=== PATIENT | female | born 1930 | race Caucasian/White ===

== ENCOUNTER → 2016-05-15 | Outpatient (CLI) | payer MEDICARE, OTHER ==
[~2016-05-15] MED LIST: ALPR0.5T PO; ALPR0.5T7 PO; DABI75CA3 PO; DOCU-94 PO; FURO20TA3; LOSA50TA6 PO; MAGN250T22 PO; METO25TA3 PO; NOR10T PO; POTA12PO2 PO; RANO500T2 PO
[2016-05-15 12:25] LABS: Basophils # (auto) 0 uL; Basophils % (auto) 0.4 % (0.0-2.0); Eosinophils # (auto) 0.1 uL; Eosinophils % (auto) 1.2 % (0.0-7.0); Hematocrit 36.8 % (36.0-46.0); Hemoglobin 12.1 g/dL (12.2-16.2); Lymphocytes # (auto) 1.3 uL; Lymphocytes % (auto) 17.5 % (10.0-50.0); Mean Corpuscular Hemoglobin 32.6 pg (28.0-32.0); Mean Corpuscular Hgb Conc. 32.7 g/dL (32.0-36.0); Mean Corpuscular Volume 99.8 fL (80.0-100.0); Monocytes # (auto) 0.6 uL; Monocytes % (auto) 7.6 % (0.0-12.0); Neutrophils # (auto) 5.4 uL; Neutrophils % (auto) 73.3 % (37.0-80.0); Platelet Count (auto) 336 10^3/uL (140-450); Red Cell Distribution Width 15.6 % (11.6-16.0); White Blood Cell 7.3 10^3/uL (4.4-10.8)
[2016-05-15 12:56] LABS: BUN/Creatinine Ratio 27.7; Calcium 9.3 mg/dL (8.5-10.1)
== END | disposition home or self-care (01) ==
LOC: Rad HDHVI 08:00
PROVIDERS: ATTEND Internal Medicine Cardiovascular Disease
DX: I10 Essential (primary) hypertension (principal); D64.9 Anemia, unspecified
CPT/HCPCS: 36415; 80048; 85025; 85049; 93306

== ENCOUNTER → 2016-08-03 | Outpatient (CLI) | payer MEDICARE, OTHER ==
[~2016-08-03] MED LIST changes: +FUROSEMIDE 100 MG/10ML VIAL IV ONE; +FUROSEMIDE 40 MG/4 ML VIAL ONE; +POTASSIUM CHL 10 Meq TABLET PO ONE
[2016-08-03 11:15] VITALS: BP 133/83
[2016-08-03 14:15] VITALS: BP 119/58
== END | disposition home or self-care (01) ==
LOC: CHF HDHVI 11:03
PROVIDERS: ATTEND Internal Medicine Cardiovascular Disease
DX: I50.9 Heart failure, unspecified (principal); R60.0 Localized edema
CPT/HCPCS: 96374; G0463; J1940

== ENCOUNTER → 2016-08-13 | Outpatient (CLI) | payer MEDICARE, OTHER ==
[~2016-08-13] MED LIST changes: +POTASSIUM CHL 20 Meq TABLET PO ONE
[2016-08-13 13:00] VITALS: BP 130/60
[2016-08-13 16:25] LABS: Potassium 3.7 mmol/L (3.5-5.1)
== END | disposition home or self-care (01) ==
LOC: CHF HDHVI 11:37
PROVIDERS: ATTEND Internal Medicine Cardiovascular Disease
DX: I10 Essential (primary) hypertension (principal); R94.4 Abnormal results of kidney function studies
CPT/HCPCS: 36415; 82565; 84132; 84520; 96374; G0463

== ENCOUNTER → 2016-08-16 | Outpatient (CLI) | payer MEDICARE, OTHER ==
[~2016-08-16] MED LIST changes: -FURO20TA3; +FURO20TA3 PO; -FUROSEMIDE 100 MG/10ML VIAL IV ONE; -FUROSEMIDE 40 MG/4 ML VIAL ONE; -POTASSIUM CHL 10 Meq TABLET PO ONE; -POTASSIUM CHL 20 Meq TABLET PO ONE; +cefTRIAXone 1GM/50ML D5W 50 ML IV ONE
[2016-08-16 12:39] LABS: Basophils # (auto) 0 uL; Basophils % (auto) 0.1 % (0.0-2.0); DEFINITIVE VIEW TRANSMISSION; Eosinophils # (auto) 0 uL; Eosinophils % (auto) 0.1 % (0.0-7.0); Lymphocytes # (auto) 0.9 uL; Lymphocytes % (auto) 6.8 % (10.0-50.0); Mean Corpuscular Hemoglobin 34.2 pg (28.0-32.0); Mean Corpuscular Hgb Conc. 33.3 g/dL (32.0-36.0); Mean Corpuscular Volume 102.7 fL (80.0-100.0); Mean Platelet Volume 7.8 fL (7.4-10.4); Monocytes # (auto) 1.2 uL; Neutrophils # (auto) 11.1 uL; Platelet Count (auto) 468 10^3/uL (140-450); Red Cell Distribution Width 16.2 % (11.6-16.0); SUSPECT VIEW TRANSMISSION; White Blood Cell 13.3 10^3/uL (4.4-10.8)
[2016-08-16 15:35] VITALS: BP 106/47
== END | disposition home or self-care (01) ==
LOC: CHF HDHVI 11:15
PROVIDERS: ATTEND Internal Medicine Cardiovascular Disease
DX: I10 Essential (primary) hypertension (principal); R94.4 Abnormal results of kidney function studies; D64.9 Anemia, unspecified
CPT/HCPCS: 36415; 82565; 84132; 84520; 85025; 96365; G0463; J0696

== ENCOUNTER → 2016-11-02 | Outpatient (CLI) | payer MEDICARE, OTHER ==
[~2016-11-02] MED LIST changes: -ALPR0.5T7 PO; -cefTRIAXone 1GM/50ML D5W 50 ML IV ONE
[2016-11-02 13:07] LABS: Basophils # (auto) 0 uL; Basophils % (auto) 0.4 % (0.0-2.0); CONDITION Y; Eosinophils # (auto) 0.1 uL; Eosinophils % (auto) 0.9 % (0.0-7.0); Hemoglobin 11.7 g/dL (12.2-16.2); Lymphocytes # (auto) 1.7 uL; Lymphocytes % (auto) 20.9 % (10.0-50.0); Mean Corpuscular Hemoglobin 33.3 pg (28.0-32.0); Mean Corpuscular Hgb Conc. 33.4 g/dL (32.0-36.0); Mean Corpuscular Volume 99.9 fL (80.0-100.0); Mean Platelet Volume 8.6 fL (7.4-10.4); Monocytes # (auto) 0.8 uL; Monocytes % (auto) 10.1 % (0.0-12.0); Neutrophils # (auto) 5.5 uL; Neutrophils % (auto) 67.7 % (37.0-80.0); Platelet Count (auto) 317 10^3/uL (140-450); Red Cell Distribution Width 14.4 % (11.6-16.0); White Blood Cell 8.1 10^3/uL (4.4-10.8)
[2016-11-02 13:35] LABS: BUN/Creatinine Ratio 20.8; Calcium 9.3 mg/dL (8.5-10.1); Potassium 3.6 mmol/L (3.5-5.1)
== END | disposition home or self-care (01) ==
LOC: LAB 10:23
PROVIDERS: ATTEND Internal Medicine Cardiovascular Disease
DX: D64.9 Anemia, unspecified (principal); I10 Essential (primary) hypertension; N39.0 Urinary tract infection, site not specified
CPT/HCPCS: 36415; 80048; 85025; 87086

== ENCOUNTER → 2018-03-19 | Outpatient (CLI) | payer MEDICARE, OTHER ==
[~2018-03-19] MED LIST changes: +LOSA-46 PO; -LOSA50TA6 PO; -METO25TA3 PO; +METO25TA4 PO
== END | disposition home or self-care (01) ==
LOC: Rad HDHVI 07:58
PROVIDERS: ATTEND Internal Medicine Cardiovascular Disease
DX: I08.8 Other rheumatic multiple valve diseases (principal); I48.0 Paroxysmal atrial fibrillation
CPT/HCPCS: 93306

== ENCOUNTER → 2018-03-27 | Outpatient (CLI) | payer MEDICARE, OTHER ==
[~2018-03-27] VITALS: Ht 162.6 cm; Wt 77.1 kg
[~2018-03-27] MED LIST changes: +ADENOSINE 65 MG in GIVE UN-DILUTED 0 ML IV ONE; +ADENOSINE 90 MG/30 ML INJ IV ONE
== END | disposition home or self-care (01) ==
LOC: Rad HDHVI 08:07
PROVIDERS: ATTEND Internal Medicine Cardiovascular Disease
DX: I48.0 Paroxysmal atrial fibrillation (principal)
CPT/HCPCS: 78452; 93005; 96374; 96375; A9500; J0153

== ENCOUNTER → 2018-04-23 | Outpatient (CLI) | payer MEDICARE, OTHER ==
[~2018-04-23] MED LIST changes: -ADENOSINE 65 MG in GIVE UN-DILUTED 0 ML IV ONE; -ADENOSINE 90 MG/30 ML INJ IV ONE; +APIX2.5T OR; +FLUT100M IN
[2018-04-23 09:19] VITALS: BP 164/82
--- NOTE | 2018-04-23 09:40 | NUR ---
PRE-OP FOR LIEN FOR 04/24/18. EKG REVIEWED BY DR KIRKLAND. Pre-Op Discharge Summary: See e-MAR for any medications given for this visit. Pre-op orders received and carried out per MD of EKG, LABS and chest xrays. Patient given a copy of EKG with instructions to go to [facility] out patient for further follow up care.
[2018-04-23 11:39] VITALS: BP 164/82
[2018-04-23 12:30] LABS: Basophils # (auto) 0 uL; Eosinophils # (auto) 0.1 uL; Eosinophils % (auto) 0.9 % (0.0-7.0); Hemoglobin 12.2 g/dL (12.2-16.2); Lymphocytes # (auto) 0.9 uL; Monocytes # (auto) 0.6 uL; Neutrophils # (auto) 4.3 uL; White Blood Cell 5.9 10^3/uL (4.4-10.8)
[2018-04-23 12:33] LABS: Basophils % (auto) 0.8 % (0.0-2.0); Hematocrit 36.5 % (36.0-46.0); Lymphocytes % (auto) 15.3 % (10.0-50.0); Mean Corpuscular Hemoglobin 35.3 pg (28.0-32.0); Mean Corpuscular Hgb Conc. 33.4 g/dL (32.0-36.0); Mean Corpuscular Volume 105.7 fL (80.0-100.0); Monocytes % (auto) 10.7 % (0.0-12.0); Neutrophils % (auto) 72.3 % (37.0-80.0); Nucleated Red Blood Cells % 0.2 %; Platelet Count (auto) 229 10^3/uL (140-450); Red Blood Cells 3.46 10^6/uL (4.0-5.20); Red Cell Distribution Width 14.3 % (11.8-14.3)
[2018-04-23 13:04] LABS: INR 0.95 (0.9-1.15); Partial Thromboplastin Time 26.4 sec (23.78-33.04); Prothrombin Time 10.2 sec (9.27-12.13)
[2018-04-23 13:15] LABS: BUN/Creatinine Ratio 33.7; Calcium 8.5 mg/dL (8.5-10.1); Potassium 4.1 mmol/L (3.5-5.1)
== END | disposition home or self-care (01) ==
LOC: Rad HDHVI 09:00
PROVIDERS: ATTEND Internal Medicine Cardiovascular Disease
DX: Z01.812 Encounter for preprocedural laboratory examination (principal); I34.0 Nonrheumatic mitral (valve) insufficiency; I37.1 Nonrheumatic pulmonary valve insufficiency; I48.91 Unspecified atrial fibrillation; I11.9 Hypertensive heart disease without heart failure; I70.0 Atherosclerosis of aorta; M40.294 Other kyphosis, thoracic region; D64.9 Anemia, unspecified; R79.1 Abnormal coagulation profile; R94.31 Abnormal electrocardiogram [ECG] [EKG]
CPT/HCPCS: 36415; 71046; 80048; 85025; 85610; 85730; 93005; G0463

== ENCOUNTER 2018-04-24 08:21 | Day surgery (SDC) | payer MEDICARE, OTHER ==
[~2018-04-24] VITALS: Ht 30.5 cm; Wt 0.5 kg
[~2018-04-24 08:21] MED LIST changes: -DABI75CA3 PO
[2018-04-24] MEDS ORDERED: MIDAZOLAM HCL 1MG/1ML-2 ML VIAL IV ONE (09:00)
[2018-04-24] MEDS ORDERED: FLUMAZENIL 0.1 MG/ML INJ 10ML MDV IV ONE (09:00)
== END 2018-04-24 12:50 | disposition home or self-care (01) ==
LOC: CATH 08:21
PROVIDERS: ATTEND Internal Medicine Cardiovascular Disease
DX: I48.91 Unspecified atrial fibrillation (principal); I07.1 Rheumatic tricuspid insufficiency; I35.0 Nonrheumatic aortic (valve) stenosis; I27.20 Pulmonary hypertension, unspecified; J44.9 Chronic obstructive pulmonary disease, unspecified; F17.210 Nicotine dependence, cigarettes, uncomplicated; I25.2 Old myocardial infarction; Z96.651 Presence of right artificial knee joint; Z80.9 Family history of malignant neoplasm, unspecified; Z98.890 Other specified postprocedural states; Z90.710 Acquired absence of both cervix and uterus
CPT/HCPCS: 93312; J2250; J7030; 99152

== ENCOUNTER → 2018-05-26 | Outpatient (CLI) | payer MEDICARE, OTHER ==
[~2018-05-26] MED LIST changes: +CYANOCOBALAMIN (B-12) 1000 MCG/1 ML VIAL IM ONE; +CYANOCOBALAMIN (B-12) 1000 MCG/1 ML VIAL ONE; +FUROSEMIDE 100 MG/10ML VIAL IV ONE; +FUROSEMIDE 40 MG/4 ML VIAL ONE; +POTASSIUM CHL 10 Meq TABLET PO ONE; +POTASSIUM CHL 20 Meq TABLET PO ONE
[2018-05-26 10:30] VITALS: BP 165/83
--- NOTE | 2018-05-26 10:30 | NUR ---
CHF PT TO CHF CLINIC FOR MD KIRKLAND ORDERED FULL LABS, WD CARE TO R VIVEK BLISTER, LASIX 80MG IVP, POTASSIUM CHLORIDE 40 MEQ PO AND VIT B 12 1000MCG IM INJECTION FOR MALAISE AND FATIGUE.
[2018-05-26 11:20] VITALS: BP 147/78
--- NOTE | 2018-05-26 11:20 | NUR ---
[facility] Wound Care Wound care provided per MD order. Patient tolerated well and verbalized dressing care instructions. Follow up in clinic as directed. See e-MAR for medications given during this visit. Discharge Instructions See e-MAR for any mediations given with this visit. Patient education given on disease process. Patient verbalized understanding. VIT B 12 [id number] Previous labs reviewed. Patient discharged in stable condition with after care instructions and follow up appointment. Addendum: 05/26/18 at 1548 by Queenie Urbina RN DC CLARIFICATION VIT B 12 1000MCG IM R DELTOID . PT TOLERATED WELL. PT TO FOLLOW UP WITH DR. KIRKLAND 06/21/18 AT 1000
[2018-05-26 16:07] LABS: Basophils # (auto) 0 uL; Eosinophils # (auto) 0 uL; Eosinophils % (auto) 0.9 % (0.0-7.0); Neutrophils # (auto) 4.3 uL; White Blood Cell 5.5 10^3/uL (4.4-10.8)
[2018-05-26 16:09] LABS: Basophils % (auto) 0.4 % (0.0-2.0); Lymphocytes # (auto) 0.6 uL; Lymphocytes % (auto) 11.6 % (10.0-50.0); Mean Corpuscular Hemoglobin 36.1 pg (28.0-32.0); Mean Corpuscular Hgb Conc. 34.2 g/dL (32.0-36.0); Mean Corpuscular Volume 105.4 fL (80.0-100.0); Monocytes # (auto) 0.6 uL; Monocytes % (auto) 10.1 % (0.0-12.0); Nucleated Red Blood Cells % 0.6 %; Platelet Count (auto) 194 10^3/uL (140-450); Red Blood Cells 3.03 10^6/uL (4.0-5.20); Red Cell Distribution Width 14.4 % (11.8-14.3)
[2018-05-26 16:13] LABS: Potassium 3.9 mmol/L (3.5-5.1)
== END | disposition home or self-care (01) ==
LOC: CHF HDHVI 10:32
PROVIDERS: ATTEND Internal Medicine Cardiovascular Disease
DX: I11.0 Hypertensive heart disease with heart failure (principal); I50.42 Chronic combined systolic (congestive) and diastolic (congestive) heart failure; I25.10 Atherosclerotic heart disease of native coronary artery without angina pectoris; R94.4 Abnormal results of kidney function studies; D64.9 Anemia, unspecified; E55.9 Vitamin D deficiency, unspecified; R23.8 Other skin changes; I48.0 Paroxysmal atrial fibrillation; I27.21 Secondary pulmonary arterial hypertension; J44.9 Chronic obstructive pulmonary disease, unspecified; I25.2 Old myocardial infarction; M19.90 Unspecified osteoarthritis, unspecified site; E78.5 Hyperlipidemia, unspecified; Z90.710 Acquired absence of both cervix and uterus; Z86.73 Personal history of transient ischemic attack (TIA), and cerebral infarction without residual deficits; Z96.651 Presence of right artificial knee joint; Z87.440 Personal history of urinary (tract) infections
CPT/HCPCS: 36415; 82306; 82565; 83880; 84132; 84520; 85025; 96372; 96374; G0463; J1940; J3420

== ENCOUNTER → 2018-06-25 | Outpatient (CLI) | payer MEDICARE, OTHER ==
[~2018-06-25] MED LIST changes: -CYANOCOBALAMIN (B-12) 1000 MCG/1 ML VIAL IM ONE; -CYANOCOBALAMIN (B-12) 1000 MCG/1 ML VIAL ONE; -FUROSEMIDE 100 MG/10ML VIAL IV ONE; +FUROSEMIDE 20 MG/2 ML VIAL ONE; +FUROSEMIDE 40 MG/4 ML VIAL IV ONE; -FUROSEMIDE 40 MG/4 ML VIAL ONE; +FUROSEMIDE INJECTION 10 ML ONE
[2018-06-25 08:00] VITALS: BP 143/65
[2018-06-25 08:30] VITALS: BP 138/72
--- NOTE | 2018-06-25 08:30 | NUR ---
IN TO CLINIC WITH WALKER IN USE, GAIT STEADY. NO DISTRESS OR DISCOMFORT. PT PRESENTS WITH ORDERS FROM DR KIRKLAND FOR LASIX 120 MG IVP AND POTASSIUM 20 MEQ PO AND ROUTINE WEEKLY TREATMENT WITH SAME ORDERS. PT REPORTS THAT SHE HAD A DOSE LAST WEEK AND THAT SHE FELT BETTER AFTERWARDS. 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 HECTOR BOOTS CURRENTLY IN PLACE AND PATIENT REPORTS THAT HOME HEALTH IS APPLYING THEM 3 TIMES WEEKLY FOR FLUID OVERLOAD MANAGEMENT. VS WNL. MEDICATED PER ORDER. REPEAT VITALS WNL. Discharge Instructions See e-MAR for any mediations given with this visit. Patient education given on disease process. Patient verbalized understanding. Previous labs reviewed. Patient discharged in stable condition with after care instructions. MEDICATION ADMINISTRATION LASIX 120 MG IVP X 1 AT 0820 POTASSIUM 20 MEQ PO AT 0820
== END | disposition home or self-care (01) ==
LOC: CHF HDHVI 08:03
PROVIDERS: ATTEND Internal Medicine Cardiovascular Disease
DX: I11.0 Hypertensive heart disease with heart failure (principal); I50.42 Chronic combined systolic (congestive) and diastolic (congestive) heart failure; R60.9 Edema, unspecified; I34.1 Nonrheumatic mitral (valve) prolapse; J44.9 Chronic obstructive pulmonary disease, unspecified; I25.2 Old myocardial infarction; I25.10 Atherosclerotic heart disease of native coronary artery without angina pectoris; I48.0 Paroxysmal atrial fibrillation; I27.21 Secondary pulmonary arterial hypertension; E78.5 Hyperlipidemia, unspecified; M19.90 Unspecified osteoarthritis, unspecified site; Z90.710 Acquired absence of both cervix and uterus; Z87.440 Personal history of urinary (tract) infections; Z96.651 Presence of right artificial knee joint; Z86.73 Personal history of transient ischemic attack (TIA), and cerebral infarction without residual deficits
CPT/HCPCS: 96374; G0463; J1940

== ENCOUNTER → 2018-07-17 | Outpatient (CLI) | payer MEDICARE, OTHER ==
[2018-07-17 10:11] VITALS: BP 138/92
[2018-07-17 10:50] VITALS: BP 149/89
[2018-07-17 16:01] LABS: Potassium 4.3 mmol/L (3.5-5.1)
== END | disposition home or self-care (01) ==
LOC: CHF HDHVI 10:15
PROVIDERS: ATTEND Internal Medicine Cardiovascular Disease
DX: I11.0 Hypertensive heart disease with heart failure (principal); I50.9 Heart failure, unspecified; R94.4 Abnormal results of kidney function studies; E87.6 Hypokalemia; I25.10 Atherosclerotic heart disease of native coronary artery without angina pectoris; I50.42 Chronic combined systolic (congestive) and diastolic (congestive) heart failure; J44.9 Chronic obstructive pulmonary disease, unspecified; E78.5 Hyperlipidemia, unspecified; I25.2 Old myocardial infarction; M19.90 Unspecified osteoarthritis, unspecified site; Z90.710 Acquired absence of both cervix and uterus; Z86.73 Personal history of transient ischemic attack (TIA), and cerebral infarction without residual deficits
CPT/HCPCS: 36415; 82565; 84132; 84520; 96374; G0463; J1940

== ENCOUNTER → 2018-07-30 | Outpatient (CLI) | payer MEDICARE, OTHER ==
[~2018-07-30] MED LIST changes: +FUROSEMIDE 100 MG/10ML VIAL IV ONE; -FUROSEMIDE 40 MG/4 ML VIAL IV ONE; -POTASSIUM CHL 20 Meq TABLET PO ONE
[2018-07-30 11:04] VITALS: BP 146/74
[2018-07-30 11:30] VITALS: BP 156/78
--- NOTE | 2018-07-30 11:30 | NUR ---
CHF CLINIC Discharge Instructions See e-MAR for any mediations given with this visit. Patient education given on disease process. Patient verbalized understanding. Previous labs reviewed. Patient discharged in stable condition with after care instructions and follow up appointment. NOTE LASIX IVP ADMIN BY NICOLE ROCHA POTASSIUM ADMIN BY SARA ROCHA. LABS DRAWN BY SARA ROCHA
[2018-07-30 16:46] LABS: Basophils # (auto) 0 uL; Eosinophils # (auto) 0 uL; Lymphocytes # (auto) 0.6 uL; Monocytes # (auto) 0.6 uL; Neutrophils # (auto) 4.9 uL; Platelet Count (auto) 189 10^3/uL (140-450)
[2018-07-30 16:49] LABS: Basophils % (auto) 0.6 % (0.0-2.0); Eosinophils % (auto) 0.6 % (0.0-7.0); Hematocrit 34.6 % (36.0-46.0); Hemoglobin 11.5 g/dL (12.2-16.2); Lymphocytes % (auto) 9.3 % (10.0-50.0); Mean Corpuscular Hemoglobin 35.3 pg (28.0-32.0); Mean Corpuscular Hgb Conc. 33.3 g/dL (32.0-36.0); Monocytes % (auto) 10.1 % (0.0-12.0); Neutrophils % (auto) 79.4 % (37.0-80.0); Nucleated Red Blood Cells % 0.2 %; Red Blood Cells 3.27 10^6/uL (4.0-5.20); Red Cell Distribution Width 14.4 % (11.8-14.3); White Blood Cell 6.2 10^3/uL (4.4-10.8)
[2018-07-30 16:53] LABS: Potassium 3.6 mmol/L (3.5-5.1)
[2018-07-30 17:04] LABS: Albumin 3.6 g/dL (3.4-5.0); Bilirubin, Total 1.3 mg/dL (0.2-1.0); Calcium 8.8 mg/dL (8.5-10.1); Magnesium 2.6 mg/dL (1.6-2.6); Total Protein 6.6 g/dL (6.4-8.2)
== END | disposition home or self-care (01) ==
LOC: CHF HDHVI 11:14
PROVIDERS: ATTEND Internal Medicine Cardiovascular Disease
DX: I11.0 Hypertensive heart disease with heart failure (principal); I50.23 Acute on chronic systolic (congestive) heart failure; I50.32 Chronic diastolic (congestive) heart failure; D64.9 Anemia, unspecified; E83.40 Disorders of magnesium metabolism, unspecified; I25.10 Atherosclerotic heart disease of native coronary artery without angina pectoris; I48.0 Paroxysmal atrial fibrillation; I25.2 Old myocardial infarction; J44.9 Chronic obstructive pulmonary disease, unspecified; E78.5 Hyperlipidemia, unspecified; M19.90 Unspecified osteoarthritis, unspecified site; I27.21 Secondary pulmonary arterial hypertension; Z90.710 Acquired absence of both cervix and uterus; Z87.440 Personal history of urinary (tract) infections; Z96.651 Presence of right artificial knee joint; Z86.73 Personal history of transient ischemic attack (TIA), and cerebral infarction without residual deficits
CPT/HCPCS: 36415; 80053; 83735; 83880; 85025; 96374; G0463; J1940

== ENCOUNTER → 2018-08-14 | Outpatient (CLI) | payer MEDICARE, OTHER ==
[~2018-08-14] MED LIST changes: +POTASSIUM CHL 20 Meq TABLET PO ONE
--- NOTE | 2018-08-14 10:00 | NUR ---
CHF PT ARRIVED AT CHF CLINIC O DISTRESS VITAL SIGNS OBTAINED. PT DID STATE SHE FEELS FULL OF FLUID, UPDATED ORDERED RECIEVED AND NOTED.
--- NOTE | 2018-08-14 10:35 | NUR ---
IV insertion IV access obtained, via clean sterile technique by inserting 24 gauge catheter at after attempt(s). IV secured properly. No trauma to site. Patient tolerated procedure well.
[2018-08-14 10:40] VITALS: BP 132/66
--- NOTE | 2018-08-14 11:05 | NUR ---
IV removal IV DC'd with sterile technique, catheter fully intact. Pressure dressing applied to site. Patient tolerated procedure well. Discharged with aftercare instructions per MD. NOTE:
[2018-08-14 11:10] VITALS: BP 130/69
--- NOTE | 2018-08-14 11:10 | NUR ---
Discharge Instructions See e-MAR for any mediations given with this visit. Patient education given on disease process. Patient verbalized understanding. Previous labs reviewed. Patient discharged in stable condition with after care instructions and follow up appointment. MEDICATIONS 1040 LASIX 120MG 1VP X 1 1045 POTASSIUM 40 MEQ PO X 1
== END | disposition home or self-care (01) ==
LOC: CHF HDHVI 10:07
PROVIDERS: ATTEND Internal Medicine Cardiovascular Disease
DX: I11.0 Hypertensive heart disease with heart failure (principal); I50.9 Heart failure, unspecified; I25.10 Atherosclerotic heart disease of native coronary artery without angina pectoris; J44.9 Chronic obstructive pulmonary disease, unspecified; E78.5 Hyperlipidemia, unspecified; I48.0 Paroxysmal atrial fibrillation; M19.90 Unspecified osteoarthritis, unspecified site; I50.42 Chronic combined systolic (congestive) and diastolic (congestive) heart failure; I25.2 Old myocardial infarction; Z86.73 Personal history of transient ischemic attack (TIA), and cerebral infarction without residual deficits
CPT/HCPCS: 96374; G0463; J1940

== ENCOUNTER → 2018-08-26 | Outpatient (CLI) | payer MEDICARE, OTHER ==
[2018-08-26 10:00] VITALS: BP 150/73
[2018-08-26 10:30] VITALS: BP 147/77
--- NOTE | 2018-08-26 10:30 | NUR ---
IN TO CLINIC FOR SCHEDULED INJECTION WITH SON IN ATTENDANCE. AFFECT CHEERFUL AND COOPERATIVE. VS WNL. BILATERAL HECTOR BOOTS INTACT WITH PT ONLY ABLE TO WEAR SLIPPERS DUE TO PERIPHERAL EDEMA. LABS DRAWN FROM BUTTERFLY NEEDLE AND THEN MEDICATED PER STANDING ORDER. TOLERATED WELL. DISCHARGED TO CARE OF FAMILY IN NO DISTRESS OR DISCOMFORT. MEDICATION ADMINISTRATION LASIX 120 MG IVP AT 1010 POTASSIUM 40 MEQ PO AT 1020
== END | disposition home or self-care (01) ==
LOC: CHF HDHVI 10:11
PROVIDERS: ATTEND Internal Medicine Cardiovascular Disease
DX: I11.0 Hypertensive heart disease with heart failure (principal); I50.42 Chronic combined systolic (congestive) and diastolic (congestive) heart failure; R94.4 Abnormal results of kidney function studies; E87.6 Hypokalemia; I27.21 Secondary pulmonary arterial hypertension; I25.10 Atherosclerotic heart disease of native coronary artery without angina pectoris; J44.9 Chronic obstructive pulmonary disease, unspecified; E78.5 Hyperlipidemia, unspecified; I25.2 Old myocardial infarction; I48.0 Paroxysmal atrial fibrillation; M19.90 Unspecified osteoarthritis, unspecified site; Z86.73 Personal history of transient ischemic attack (TIA), and cerebral infarction without residual deficits; Z90.710 Acquired absence of both cervix and uterus
CPT/HCPCS: 36415; 82565; 84132; 84520; 96374; G0463; J1940

== ENCOUNTER → 2018-09-18 | Outpatient (CLI) | payer MEDICARE, OTHER ==
[~2018-09-18] MED LIST changes: -FUROSEMIDE 100 MG/10ML VIAL IV ONE; +FUROSEMIDE 40 MG/4 ML VIAL IV ONE
[2018-09-18 11:20] VITALS: BP 138/75
[2018-09-18 12:05] VITALS: BP 129/90
--- NOTE | 2018-09-18 12:05 | NUR ---
CHF IN TO CLINIC FOR CHF. LYMPHADEMA OF BILATERAL LOWER EXTREMITIES, LEFT GREATER THAN RIGHT. HECTOR BOOTS INTACT BILATERALLY PT REPORTS LEAKING LEG ON LEFT LEG AND APPLIED A GAUZE E PAD. CLINIC PROVIDER CONSULTED AND ORDERS RECIEVED. VS WNL. FAMILY IN ATTENDANCE. MEDICATED PER ORDER. TOLERATED WELL. Discharge Instructions See e-MAR for any mediations given with this visit. Patient education given on disease process. Patient verbalized understanding. Previous labs reviewed. Patient discharged in stable condition with after care instructions and follow up appointment FOR 1 WEEK. MEDICATION ADMINISTRATION LASIX 120 MG IVP AT 1200 POTASSIUM 40 MEQ PO AT 1150
== END | disposition home or self-care (01) ==
LOC: CHF HDHVI 11:18
PROVIDERS: ATTEND Internal Medicine Cardiovascular Disease
DX: I89.0 Lymphedema, not elsewhere classified (principal); I11.0 Hypertensive heart disease with heart failure; I50.42 Chronic combined systolic (congestive) and diastolic (congestive) heart failure; I25.10 Atherosclerotic heart disease of native coronary artery without angina pectoris; I25.2 Old myocardial infarction; I48.0 Paroxysmal atrial fibrillation; J44.9 Chronic obstructive pulmonary disease, unspecified; E78.5 Hyperlipidemia, unspecified; M19.90 Unspecified osteoarthritis, unspecified site; Z90.710 Acquired absence of both cervix and uterus; Z86.73 Personal history of transient ischemic attack (TIA), and cerebral infarction without residual deficits
CPT/HCPCS: 96374; G0463; J1940

== ENCOUNTER → 2018-09-26 | Outpatient (CLI) | payer MEDICARE, OTHER ==
[~2018-09-26] MED LIST changes: +FUROSEMIDE 100 MG/10ML VIAL IV ONE; -FUROSEMIDE 40 MG/4 ML VIAL IV ONE; +KETOROLAC TROMETH 60MG/2ML VIAL IM ONE; +KETOROLAC TROMETH 60MG/2ML VIAL ONE; +TORS1TAB10 PO
[2018-09-26 10:30] VITALS: BP 138/71
[2018-09-26 10:53] VITALS: BP 154/67
--- NOTE | 2018-09-26 10:53 | NUR ---
IN TO CLINIC FOR SCHEDULED IV PUSH OF LASIX. BILATERAL HECTOR BOOTS ON. VS WNL. CLINIC PROVIDER CONSULTED AND ORDERS RECIEVED. MEDICATED PER ORDER. TOLERATED WELL. REPORTS PAIN 7/10 TO ALL JOINTS . Discharge Instructions See e-MAR for any mediations given with this visit. Patient education given on disease process. Patient verbalized understanding. Previous labs reviewed. Patient discharged in stable condition with after care instructions and follow up appointment FOR 10/02/18. MEDICATION ADMINISTRATION LASIX 120 MG IVP AT 1035 KDUR 40 MEQ PO AT 1030 TORADOL 30 MG IM RIGHT GLUT AT 1050
[2018-09-26 12:22] LABS: Basophils # (auto) 0 uL; Eosinophils # (auto) 0 uL; Eosinophils % (auto) 0.3 % (0.0-7.0); Lymphocytes # (auto) 0.7 uL; Mean Corpuscular Hgb Conc. 33.7 g/dL (32.0-36.0); Neutrophils # (auto) 7.6 uL
[2018-09-26 12:26] LABS: Basophils % (auto) 0.2 % (0.0-2.0); Hematocrit 34.6 % (36.0-46.0); Hemoglobin 11.7 g/dL (12.2-16.2); Lymphocytes % (auto) 7.4 % (10.0-50.0); Mean Corpuscular Hemoglobin 35.3 pg (28.0-32.0); Mean Corpuscular Volume 104.9 fL (80.0-100.0); Monocytes # (auto) 0.7 uL; Monocytes % (auto) 8.2 % (0.0-12.0); Neutrophils % (auto) 83.9 % (37.0-80.0); Platelet Count (auto) 200 10^3/uL (140-450)
[2018-09-26 12:45] LABS: Potassium 3.8 mmol/L (3.5-5.1)
[2018-09-26 12:50] LABS: BUN/Creatinine Ratio 64.5; Calcium 8.6 mg/dL (8.5-10.1); Magnesium 3.2 mg/dL (1.6-2.6)
== END | disposition home or self-care (01) ==
LOC: CHF HDHVI 10:12
PROVIDERS: ATTEND Internal Medicine Cardiovascular Disease
DX: I11.0 Hypertensive heart disease with heart failure (principal); I50.42 Chronic combined systolic (congestive) and diastolic (congestive) heart failure; D64.9 Anemia, unspecified; E83.40 Disorders of magnesium metabolism, unspecified; I27.21 Secondary pulmonary arterial hypertension; I25.2 Old myocardial infarction; I25.10 Atherosclerotic heart disease of native coronary artery without angina pectoris; I48.0 Paroxysmal atrial fibrillation; J44.9 Chronic obstructive pulmonary disease, unspecified; E78.5 Hyperlipidemia, unspecified; M19.90 Unspecified osteoarthritis, unspecified site; Z86.73 Personal history of transient ischemic attack (TIA), and cerebral infarction without residual deficits; Z90.710 Acquired absence of both cervix and uterus
CPT/HCPCS: 36415; 80048; 83735; 85025; 96372; 96374; G0463; J1885; J1940

== ENCOUNTER 2018-10-03 06:55 | Inpatient (IN) | payer MEDICARE, OTHER ==
[~2018-10-03] VITALS: Ht 165.1 cm; Wt 85.3 kg
[~2018-10-03 06:55] MED LIST changes: -FUROSEMIDE 100 MG/10ML VIAL IV ONE; -FUROSEMIDE 20 MG/2 ML VIAL ONE; -FUROSEMIDE INJECTION 10 ML ONE; -KETOROLAC TROMETH 60MG/2ML VIAL IM ONE; -KETOROLAC TROMETH 60MG/2ML VIAL ONE; -POTASSIUM CHL 10 Meq TABLET PO ONE; -POTASSIUM CHL 20 Meq TABLET PO ONE; -TORS1TAB10 PO
[2018-10-03] MEDS ORDERED: SODIUM CHLORIDE 0.9% 500 ML IVB ONE (07:25)
[2018-10-03 08:30] LABS: Basophils # (auto) 0 uL; Basophils % (auto) 0.1 % (0.0-2.0); Lymphocytes # (auto) 0.6 uL; Red Cell Distribution Width 14.2 % (11.8-14.3)
[2018-10-03 08:32] LABS: Urine Bacteria FEW /hpf (None Seen); Urine Blood Negative /uL (Negative); Urine Specific Gravity 1.014 (1.001-1.035); Urine WBC <1 /hpf (0 - 5)
[2018-10-03 08:33] LABS: Eosinophils # (auto) 0 uL; Eosinophils % (auto) 0.2 % (0.0-7.0); Hematocrit 37.8 % (36.0-46.0); Hemoglobin 12.6 g/dL (12.2-16.2); Lymphocytes % (auto) 4.4 % (10.0-50.0); Mean Corpuscular Hemoglobin 35.4 pg (28.0-32.0); Mean Corpuscular Hgb Conc. 33.4 g/dL (32.0-36.0); Mean Corpuscular Volume 105.9 fL (80.0-100.0); Monocytes # (auto) 1.2 uL; Monocytes % (auto) 8.3 % (0.0-12.0); Neutrophils # (auto) 12.6 uL; Platelet Count (auto) 207 10^3/uL (140-450); Red Blood Cells 3.57 10^6/uL (4.0-5.20); White Blood Cell 14.5 10^3/uL (4.4-10.8)
[2018-10-03 08:51] LABS: Albumin 3.3 g/dL (3.4-5.0); BUN/Creatinine Ratio 61.7; Calcium 8.9 mg/dL (8.5-10.1); Magnesium 3.2 mg/dL (1.6-2.6); Potassium 3.9 mmol/L (3.5-5.1)
[2018-10-03 08:52] LABS: INR 0.95 (0.9-1.15); Partial Thromboplastin Time 23.2 sec (23.64-32.05)
[2018-10-03 08:56] LABS: Bilirubin, Total 0.6 mg/dL (0.2-1.0); Total Protein 6.7 g/dL (6.4-8.2)
[2018-10-03] MEDS ORDERED: NITROGLYCERIN 0.4 MG SL TAB SL PRN (11:15)
[2018-10-03] MEDS ORDERED: MORPHINE SULF INJ 2 MG/ML SYRINGE 1ML IV PRN (11:15)
[2018-10-03] MEDS: SODIUM CHLORIDE 0.9% 1,000 ML IV SCH ×2 (11:39→21:15)
[2018-10-03 17:56] VITALS: BP 137/54
[2018-10-03 22:00] VITALS: BP 136/90
[2018-10-03] MEDS: RANOLAZINE ER 500 MG TAB PO SCH (22:01)
[2018-10-03] MEDS: APIXABAN 2.5 MG TAB PO SCH (22:02)
[2018-10-03] MEDS: LOSARTAN POTASSIUM 50 MG TAB PO SCH (22:02)
[2018-10-03] MEDS: METOPROLOL TARTRATE 25 MG TAB PO SCH (22:02)
[2018-10-03] MEDS: HYDROcodone-ACET 10/325MG TAB PO PRN (22:55)
[2018-10-04] MEDS: ALPRAZolam 0.5 MG TAB PO PRN ×2 (00:08→22:25)
[2018-10-04 05:00] VITALS: BP 119/70
[2018-10-04] MEDS: FUROSEMIDE 40 MG TAB PO SCH ×2 (06:31→18:08)
[2018-10-04] MEDS: HYDROcodone-ACET 10/325MG TAB PO PRN ×2 (07:29→18:14)
[2018-10-04 09:00] VITALS: BP 110/66
[2018-10-04] MEDS: METOPROLOL TARTRATE 25 MG TAB PO SCH ×3 (10:00→10:48)
[2018-10-04] MEDS: cefTRIAXone 1GM/50ML D5W 50 ML IV SCH (10:02)
[2018-10-04] MEDS: MAGNESIUM OXIDE 400 MG TAB PO SCH (10:03)
[2018-10-04] MEDS: APIXABAN 2.5 MG TAB PO SCH ×2 (10:03→22:25)
[2018-10-04] MEDS: POTASSIUM CHL 20 Meq TABLET PO SCH (10:03)
[2018-10-04] MEDS: RANOLAZINE ER 500 MG TAB PO SCH ×2 (10:03→22:25)
[2018-10-04] MEDS: LOSARTAN POTASSIUM 50 MG TAB PO SCH ×2 (10:07→22:26)
[2018-10-04] MEDS ORDERED: BISACODYL 5 MG EC TAB PO ONE (10:45)
[2018-10-04 12:16] VITALS: BP 107/56
[2018-10-04] MEDS: SODIUM CHLORIDE 0.9% 1,000 ML IV SCH ×2 (15:00→17:15)
[2018-10-04] MEDS ORDERED: TORS1TAB10 PO (16:51)
[2018-10-04 17:00] VITALS: BP 97/56
[2018-10-04 21:40] VITALS: BP 123/60
[2018-10-05] MEDS: HYDROcodone-ACET 10/325MG TAB PO PRN ×2 (04:47→17:19)
[2018-10-05] MEDS: SODIUM CHLORIDE 0.9% 1,000 ML IV SCH ×2 (04:48→17:18)
[2018-10-05 05:00] VITALS: BP 117/71
[2018-10-05] MEDS: FUROSEMIDE 40 MG TAB PO SCH ×2 (06:19→18:00)
[2018-10-05 09:00] VITALS: BP 125/74
[2018-10-05] MEDS: MAGNESIUM OXIDE 400 MG TAB PO SCH (10:00)
[2018-10-05] MEDS: cefTRIAXone 1GM/50ML D5W 50 ML IV SCH (10:31)
[2018-10-05] MEDS: POTASSIUM CHL 20 Meq TABLET PO SCH (10:31)
[2018-10-05] MEDS: LOSARTAN POTASSIUM 50 MG TAB PO SCH ×2 (10:34→22:11)
[2018-10-05] MEDS: APIXABAN 2.5 MG TAB PO SCH ×2 (10:34→22:07)
[2018-10-05] MEDS: RANOLAZINE ER 500 MG TAB PO SCH ×2 (10:36→22:07)
[2018-10-05] MEDS: METOPROLOL TARTRATE 25 MG TAB PO SCH (10:37)
[2018-10-05 13:18] VITALS: BP 124/64
[2018-10-05 14:28] LABS: Potassium 3.4 mmol/L (3.5-5.1)
[2018-10-05 14:30] LABS: BUN/Creatinine Ratio 38.7
[2018-10-05 14:33] LABS: Bilirubin, Total 0.8 mg/dL (0.2-1.0); Total Protein 6.1 g/dL (6.4-8.2)
[2018-10-05 14:56] LABS: Basophils # (auto) 0 uL; Basophils % (auto) 0.3 % (0.0-2.0); Eosinophils # (auto) 0.1 uL; White Blood Cell 11.7 10^3/uL (4.4-10.8)
[2018-10-05 15:24] LABS: Eosinophils % (auto) 0.6 % (0.0-7.0); Lymphocytes # (auto) 0.7 uL; Lymphocytes % (auto) 5.8 % (10.0-50.0); Monocytes # (auto) 0.8 uL; Monocytes % (auto) 7.2 % (0.0-12.0); Neutrophils # (auto) 10.1 uL; Neutrophils % (auto) 86.1 % (37.0-80.0); Red Blood Cells 3.26 10^6/uL (4.0-5.20)
[2018-10-05 15:25] LABS: Hematocrit 34.5 % (36.0-46.0); Hemoglobin 11.4 g/dL (12.2-16.2); Mean Corpuscular Hemoglobin 35.1 pg (28.0-32.0); Mean Corpuscular Hgb Conc. 33.1 g/dL (32.0-36.0); Mean Corpuscular Volume 106.1 fL (80.0-100.0); Platelet Count (auto) 190 10^3/uL (140-450)
[2018-10-05 17:00] VITALS: BP 132/85
[2018-10-05] MEDS: ALPRAZolam 0.5 MG TAB PO PRN (22:07)
[2018-10-06] VITALS (7 sets, daily range): BP systolic 89–126; BP diastolic 36–75
[2018-10-06] MEDS: HYDROcodone-ACET 10/325MG TAB PO PRN ×2 (03:10→15:16)
[2018-10-06] MEDS: SODIUM CHLORIDE 0.9% 1,000 ML IV SCH ×2 (03:12→09:15)
[2018-10-06] MEDS: FUROSEMIDE 40 MG TAB PO SCH ×2 (06:32→18:00)
[2018-10-06 07:37] LABS: Hemoglobin 11.1 g/dL (12.2-16.2); Red Cell Distribution Width 13.8 % (11.8-14.3)
[2018-10-06 07:41] LABS: Hematocrit 32.6 % (36.0-46.0); Mean Corpuscular Hemoglobin 36.1 pg (28.0-32.0); Mean Corpuscular Hgb Conc. 34.1 g/dL (32.0-36.0); Mean Corpuscular Volume 105.7 fL (80.0-100.0); Platelet Count (auto) 183 10^3/uL (140-450); Red Blood Cells 3.08 10^6/uL (4.0-5.20)
[2018-10-06 08:32] LABS: Band Neutrophils % (manual) 0; Basophils % (manual) 0 (0.0-2.0); Blast Cells 0; Metamyelocytes % 0; Myelocytes % 0; Promyelocytes % 0; Reactive Lymphocytes 0
[2018-10-06] MEDS: cefTRIAXone 1GM/50ML D5W 50 ML IV SCH (10:11)
[2018-10-06] MEDS: MAGNESIUM OXIDE 400 MG TAB PO SCH (10:12)
[2018-10-06] MEDS: METOPROLOL TARTRATE 25 MG TAB PO SCH (10:13)
[2018-10-06] MEDS: POTASSIUM CHL 20 Meq TABLET PO SCH (10:14)
[2018-10-06] MEDS: RANOLAZINE ER 500 MG TAB PO SCH ×2 (10:18→22:41)
[2018-10-06] MEDS: LOSARTAN POTASSIUM 50 MG TAB PO SCH ×2 (10:18→22:40)
[2018-10-06] MEDS: APIXABAN 2.5 MG TAB PO SCH ×2 (10:18→22:41)
[2018-10-06] MEDS: ALPRAZolam 0.5 MG TAB PO PRN (22:41)
[2018-10-06 22:51] LABS: Eosinophils % (manual) 3 (0-7); Lymphocytes % (manual) 7 (10.0-50.0); Monocytes % (manual) 5 (0-12)
[2018-10-07] VITALS (7 sets, daily range): BP systolic 128–143; BP diastolic 73–100
[2018-10-07] MEDS: HYDROcodone-ACET 10/325MG TAB PO PRN ×2 (04:00→15:30)
[2018-10-07] MEDS: cefTRIAXone 1GM/50ML D5W 50 ML IV SCH (11:29)
[2018-10-07] MEDS: RANOLAZINE ER 500 MG TAB PO SCH (11:30)
[2018-10-07] MEDS: POTASSIUM CHL 20 Meq TABLET PO SCH (11:30)
[2018-10-07] MEDS: APIXABAN 2.5 MG TAB PO SCH (11:30)
[2018-10-07] MEDS: MAGNESIUM OXIDE 400 MG TAB PO SCH (11:30)
[2018-10-07] MEDS: LOSARTAN POTASSIUM 50 MG TAB PO SCH (11:31)
[2018-10-07] MEDS: METOPROLOL TARTRATE 25 MG TAB PO SCH (11:31)
== END 2018-10-07 18:35 | disposition home health service (06) | DRG 871 ==
LOC: EDUNIT# 06:55 → ER 06:55 → EDBD 06:55 → TELE 06:56 → TELE-EAST 16:42
PROVIDERS: ADMIT Internal Medicine Cardiovascular Disease; ATTEND Internal Medicine Cardiovascular Disease
DX: A41.9 Sepsis, unspecified organism (principal); N17.0 Acute kidney failure with tubular necrosis; N39.0 Urinary tract infection, site not specified; I50.32 Chronic diastolic (congestive) heart failure; R55 Syncope and collapse; S09.90XA Unspecified injury of head, initial encounter; X58.XXXA Exposure to other specified factors, initial encounter; R73.9 Hyperglycemia, unspecified; E86.9 Volume depletion, unspecified; I11.0 Hypertensive heart disease with heart failure; Z79.01 Long term (current) use of anticoagulants; Z79.51 Long term (current) use of inhaled steroids; Z79.899 Other long term (current) drug therapy; Z86.73 Personal history of transient ischemic attack (TIA), and cerebral infarction without residual deficits; Z90.710 Acquired absence of both cervix and uterus; Z90.49 Acquired absence of other specified parts of digestive tract; Y93.89 Activity, other specified; Y92.89 Other specified places as the place of occurrence of the external cause; Y99.8 Other external cause status
CPT/HCPCS: 36415; 36600; 70450; 71045; 72125; 80053; 80320; 81001; 82805; 83735; 83880; 84484; 85007; 85025; 85027; 85610; 85730; 87040; 93005; 94761; 96360; 96361; 96372; 96374; 97116; 97163; 97530; G0378; G0463; J0696; J1885

== ENCOUNTER → 2018-11-11 | Outpatient (CLI) | payer MEDICARE, OTHER ==
[~2018-11-11] MED LIST changes: +ALPR-140; -FURO20TA3 PO; +FURO40TA4; +FUROSEMIDE 100 MG/10ML VIAL IV ONE; +FUROSEMIDE 20 MG/2 ML VIAL ONE; +FUROSEMIDE INJECTION 10 ML ONE; +KETOROLAC TROMETH 60MG/2ML VIAL IM ONE; +KETOROLAC TROMETH 60MG/2ML VIAL ONE; -LOSA-46 PO; +LOSA-69 PO; +METO25TA36 PO; -METO25TA4 PO; +POTA10TA51 PO; +POTASSIUM CHL 10 Meq TABLET PO ONE; +POTASSIUM CHL 20 Meq TABLET PO ONE; +RANO500T; +TORS1TAB10 PO; +TORS20TA19; +TORS20TA20 PO
[2018-11-11 11:28] VITALS: BP 133/69
[2018-11-11 12:32] VITALS: BP 143/74
--- NOTE | 2018-11-11 12:32 | NUR ---
IN FOR SCHEDULED INJECTION OF LASIX R/T PERSISTENT LOWER EXTREMITY EDEMA. HECTOR BOOTS IN PLACE ON BILATERAL LOWER EXTREMITIES. PT REPORTS THAT HECTOR BOOTS HELP ALLEVIATE LOWER EXTREMITY EDEMA AND THAT HOME HEALTH APPLIES THEM 3 TIMES WEEKLY. VS WNL. REPORTS PAIN RATED 6/10 TO LEFT SHOULDER PRIMARILY RELATED TO OSTEOARTHRITIS. CLINIC PROVIDER CONSULTED AND ORDERS RECIEVED. DISCHARGED TO CARE OF DAUGHTER IN NO DISTRESS OR DISCOMFORT. MEDICATION ADMINISTRATION FUROSEMIDE 120 MG IVP AT 1200 POTASSIUM 40 MEQ PO AT 1200 TORADOL 30 M G IM TO RIGHT GLUT AT 1229
[2018-11-11 15:54] LABS: Basophils # (auto) 0 uL; Basophils % (auto) 0.4 % (0.0-2.0); Eosinophils # (auto) 0.1 uL; Eosinophils % (auto) 1.8 % (0.0-7.0); Hematocrit 35.7 % (36.0-46.0); Hemoglobin 11.7 g/dL (12.2-16.2); Lymphocytes # (auto) 0.8 uL; Lymphocytes % (auto) 11.8 % (10.0-50.0); Mean Corpuscular Hemoglobin 34.4 pg (28.0-32.0); Mean Corpuscular Hgb Conc. 32.8 g/dL (32.0-36.0); Mean Corpuscular Volume 104.7 fL (80.0-100.0); Monocytes # (auto) 0.7 uL; Monocytes % (auto) 9.8 % (0.0-12.0); Neutrophils # (auto) 5.3 uL; Neutrophils % (auto) 76.2 % (37.0-80.0); Nucleated Red Blood Cells % 0.1 %; Platelet Count (auto) 265 10^3/uL (140-450); Red Blood Cells 3.41 10^6/uL (4.0-5.20); Red Cell Distribution Width 15.3 % (11.8-14.3); White Blood Cell 6.9 10^3/uL (4.4-10.8)
[2018-11-11 16:04] LABS: BUN/Creatinine Ratio 43.4; Calcium 8.8 mg/dL (8.5-10.1); Magnesium 2.5 mg/dL (1.6-2.6); Potassium 3.8 mmol/L (3.5-5.1)
== END | disposition home or self-care (01) ==
LOC: CHF HDHVI 12:06
PROVIDERS: ATTEND Internal Medicine Cardiovascular Disease
DX: I11.0 Hypertensive heart disease with heart failure (principal); I50.42 Chronic combined systolic (congestive) and diastolic (congestive) heart failure; D64.9 Anemia, unspecified; E83.40 Disorders of magnesium metabolism, unspecified; R53.83 Other fatigue; I25.10 Atherosclerotic heart disease of native coronary artery without angina pectoris; J44.9 Chronic obstructive pulmonary disease, unspecified; E78.5 Hyperlipidemia, unspecified; I25.2 Old myocardial infarction; I48.0 Paroxysmal atrial fibrillation; M19.90 Unspecified osteoarthritis, unspecified site; Z90.710 Acquired absence of both cervix and uterus; Z90.49 Acquired absence of other specified parts of digestive tract; Z79.01 Long term (current) use of anticoagulants; Z79.899 Other long term (current) drug therapy; Z86.73 Personal history of transient ischemic attack (TIA), and cerebral infarction without residual deficits
CPT/HCPCS: 36415; 80048; 83735; 85025; 96372; 96374; G0463; J1885; J1940

== ENCOUNTER 2018-11-17 11:16 | Inpatient (IN) | payer MEDICARE, OTHER ==
[~2018-11-17] VITALS: Ht 165.1 cm; Wt 78.1 kg
[~2018-11-17 11:16] MED LIST changes: -ALPR-140; -FURO40TA4; -FUROSEMIDE 100 MG/10ML VIAL IV ONE; -FUROSEMIDE 20 MG/2 ML VIAL ONE; -FUROSEMIDE INJECTION 10 ML ONE; -KETOROLAC TROMETH 60MG/2ML VIAL IM ONE; -KETOROLAC TROMETH 60MG/2ML VIAL ONE; -POTA10TA51 PO; -POTASSIUM CHL 10 Meq TABLET PO ONE; -POTASSIUM CHL 20 Meq TABLET PO ONE; -RANO500T; -TORS20TA19; -TORS20TA20 PO
[2018-11-17 13:39] LABS: Basophils # (auto) 0.1 uL; Lymphocytes # (auto) 0.8 uL; Lymphocytes % (auto) 5.8 % (10.0-50.0); Monocytes # (auto) 0.9 uL; White Blood Cell 14.6 10^3/uL (4.4-10.8)
[2018-11-17 13:43] LABS: Basophils % (auto) 0.4 % (0.0-2.0); Eosinophils # (auto) 0.1 uL; Eosinophils % (auto) 0.4 % (0.0-7.0); Hematocrit 38.9 % (36.0-46.0); Mean Corpuscular Hemoglobin 35.1 pg (28.0-32.0); Mean Corpuscular Hgb Conc. 33.4 g/dL (32.0-36.0); Mean Corpuscular Volume 105.1 fL (80.0-100.0); Monocytes % (auto) 6.3 % (0.0-12.0); Neutrophils # (auto) 12.8 uL; Neutrophils % (auto) 87.1 % (37.0-80.0); Platelet Count (auto) 198 10^3/uL (140-450); Red Cell Distribution Width 14.9 % (11.8-14.3)
[2018-11-17] MEDS ORDERED: cefTRIAXone 1GM/50ML D5W 50 ML IV ONE ×2 (13:49→14:00)
[2018-11-17 13:52] LABS: INR 1.01 (0.9-1.15); Partial Thromboplastin Time 30.6 sec (23.64-32.05)
[2018-11-17 13:55] LABS: Chloride 98 mmol/L (98-107); Potassium 3.2 mmol/L (3.5-5.1); Sodium 137 mmol/L (136-145)
[2018-11-17] MEDS ORDERED: CLINDAMYCIN 600MG IV 50 ML IV ONE (14:00)
[2018-11-17 14:07] LABS: Alanine Aminotransferase 15 U/L (13-56); Albumin 3.6 g/dL (3.4-5.0); Alkaline Phosphatase 66 U/L (45-117); Anion Gap 13 (5-15); Aspartate Aminotransferase 18 U/L (15-37); BUN/Creatinine Ratio 34.3; Bilirubin, Total 1.4 mg/dL (0.2-1.0); Blood Urea Nitrogen 68 mg/dL (7-18); Carbon Dioxide 26 mmol/L (21-32); GFR African American 31 mL/min; GFR Non-African American 25 mL/min; Glucose 120 mg/dL (74-106); Total Protein 7.9 g/dL (6.4-8.2)
[2018-11-17] MEDS ORDERED: NITROGLYCERIN 0.4 MG SL TAB SL PRN (18:45)
[2018-11-17] MEDS ORDERED: MORPHINE SULF INJ 2 MG/ML SYRINGE 1ML IV PRN (18:45)
[2018-11-17] MEDS ORDERED: TORS20TA19 (18:53)
[2018-11-17] MEDS ORDERED: FURO40TA4 (18:53)
[2018-11-17] MEDS ORDERED: RANO500T (18:53)
[2018-11-17] MEDS ORDERED: ALPR-140 (18:53)
[2018-11-17 20:30] VITALS: BP 132/64
[2018-11-17] MEDS ORDERED: ceFAZolin 1GM/50ML 50 ML IV SCH (20:30)
--- NOTE | 2018-11-17 20:30 | NUR ---
Telemetry admit from ER RUDOLPH JAVED admitted to Telemetry unit after SBAR received. Patient oriented to AZRA ROJAS RN primary RN, unit, room, bed, and unit policies regarding patient care and visiting hours. Patient now on continuous telemetry monitoring, tele box #[id number] and telemetry reading on arrival to unit is AFIB. Patient placed on bedside oxygen 2L/NC, weighed by bedscale and encouraged to call if they need something. All questions and concerns addressed, patient verbalized understanding. Note:
[2018-11-17] MEDS ORDERED: POTA10TA51 PO (21:56)
[2018-11-17] MEDS ORDERED: APIX2.5T OR (21:56)
[2018-11-17] MEDS ORDERED: TORS20TA20 PO (21:56)
[2018-11-17 22:00] VITALS: BP 132/64
[2018-11-17] MEDS ORDERED: ceFAZolin 1GM/50ML 100 ML IV SCH (22:00)
[2018-11-17] MEDS ORDERED: MAGNESIUM OXIDE 250 MG PO SCH (22:00)
[2018-11-17] MEDS: LOSARTAN POTASSIUM 50 MG TAB PO SCH (22:00)
[2018-11-17] MEDS ORDERED: APIXABAN 2.5 MG TAB PO SCH (22:00)
--- NOTE | 2018-11-17 22:00 | NUR ---
MEDICATION RECONCILIATION UPDATED. PATIENT STATED, SHE'S ONLY TAKING ELIQUIS 2.5MG DAILY.
--- NOTE | 2018-11-17 23:00 | NUR ---
SPOKE TO PHARMACIST REGARDING ELIQUIS ORDER, PER PHARMACIST, ELIQUIS IS MORE EFFECTIVE WHEN TAKEN TWICE A DAY. INFORMED PATIENT THAT ORDER IS CHANGED TO BID FOR NOW AND WILL CLARIFY WITH THE DOCTOR IN THE MORNING.
[2018-11-17] MEDS: DOCUSATE SOD 100 MG CAP PO SCH (23:02)
[2018-11-17] MEDS: APIXABAN 2.5 MG TAB PO SCH (23:03)
[2018-11-17] MEDS: POTASSIUM CHL 10 Meq TABLET PO SCH (23:03)
[2018-11-17] MEDS: HYDROcodone-ACET 10/325MG TAB PO PRN (23:03)
[2018-11-17] MEDS: METOPROLOL SUCCINATE XL 50 MG TAB PO SCH (23:04)
[2018-11-18 05:00] VITALS: BP 115/59
[2018-11-18] MEDS: HYDROcodone-ACET 10/325MG TAB PO PRN ×3 (06:02→21:42)
[2018-11-18] MEDS ORDERED: ceFAZolin 1GM/50ML 50 ML IV SCH (08:00)
[2018-11-18 08:30] VITALS: BP 95/52
[2018-11-18] MEDS ORDERED: TORSEMIDE 20 MG TAB PO SCH (10:00)
[2018-11-18] MEDS ORDERED: APIXABAN 2.5 MG TAB PO SCH (10:00)
[2018-11-18] MEDS ORDERED: RANOLAZINE ER 500 MG TAB PO SCH (10:00)
[2018-11-18] MEDS ORDERED: METOPROLOL SUCCINATE XL 50 MG TAB PO SCH (10:00)
[2018-11-18] MEDS: METOPROLOL SUCCINATE XL 50 MG TAB PO SCH (10:00)
[2018-11-18] MEDS: LOSARTAN POTASSIUM 50 MG TAB PO SCH ×2 (10:00→21:42)
[2018-11-18 11:13] LABS: Urine Bacteria FEW /hpf (None Seen); Urine Blood Negative /uL (Negative); Urine Hyaline Cast FEW /lpf (0 - 2); Urine Specific Gravity 1.016 (1.001-1.035); Urine WBC 18 /hpf (0 - 5)
[2018-11-18] MEDS: ceFAZolin 1GM/50ML 50 ML IV SCH ×3 (11:38→23:52)
[2018-11-18] MEDS: DOCUSATE SOD 100 MG CAP PO SCH ×2 (11:38→21:41)
[2018-11-18] MEDS: TORSEMIDE 20 MG TAB PO SCH ×2 (11:39→19:55)
[2018-11-18] MEDS: APIXABAN 2.5 MG TAB PO SCH ×2 (11:39→21:42)
[2018-11-18] MEDS: RANOLAZINE ER 500 MG TAB PO SCH ×2 (11:40→21:43)
[2018-11-18] MEDS: POTASSIUM CHL 10 Meq TABLET PO SCH ×2 (11:40→21:42)
[2018-11-18 12:30] VITALS: BP 117/68
[2018-11-18 17:57] VITALS: BP 124/69
--- NOTE | 2018-11-18 19:56 | NUR ---
PATIENT REFUSED TO TAKE TORSEMIDE TONIGHT AND REQUESTED TO HAVE THE DOSING TIMES CHANGED TO 0600 AND 1800.
[2018-11-18 23:12] VITALS: BP 120/65
[2018-11-18] MEDS: ALPRAZolam 0.5 MG TAB PO PRN (23:56)
--- NOTE | 2018-11-19 00:45 | NUR ---
IV insertion IV access obtained, via clean sterile technique by inserting 22 gauge catheter at LEFT FOREARM after 1 attempt. IV secured properly. No trauma to site. Patient tolerated well. NOTE:
--- NOTE | 2018-11-19 00:46 | NUR ---
IV removal IV DC'd with clean sterile technique, catheter fully intact. Pressure dressing applied to site. Patient tolerated well. NOTE:
[2018-11-19] MEDS: HYDROcodone-ACET 10/325MG TAB PO PRN ×3 (04:49→22:30)
[2018-11-19 05:53] VITALS: BP 109/57
[2018-11-19] MEDS: TORSEMIDE 20 MG TAB PO SCH ×2 (05:53→17:02)
[2018-11-19] MEDS: ceFAZolin 1GM/50ML 50 ML IV SCH ×2 (08:36→16:47)
[2018-11-19 08:54] VITALS: BP 100/57
[2018-11-19] MEDS: LOSARTAN POTASSIUM 50 MG TAB PO SCH ×2 (09:11→22:30)
[2018-11-19] MEDS: DOCUSATE SOD 100 MG CAP PO SCH ×2 (09:11→22:30)
[2018-11-19] MEDS: APIXABAN 2.5 MG TAB PO SCH ×2 (09:11→22:30)
[2018-11-19] MEDS: POTASSIUM CHL 10 Meq TABLET PO SCH ×2 (09:12→22:30)
[2018-11-19] MEDS: RANOLAZINE ER 500 MG TAB PO SCH ×2 (09:12→22:30)
[2018-11-19] MEDS: METOPROLOL SUCCINATE XL 50 MG TAB PO SCH (09:12)
[2018-11-19 12:26] VITALS: BP 105/56
--- NOTE | 2018-11-19 15:00 | NUR ---
PT REQUESTED P.T. BE DONE TOMORROW.
[2018-11-19 17:00] VITALS: BP 101/55
--- NOTE | 2018-11-19 19:18 | NUR ---
RECEIVED PATIENT FROM DAY SHIFT RN. ASSISTED PATIENT BACK TO THE BED. NO S/S OF DISTRESS NOTED. PATIENT C/O PAIN ON HER SHOULDER @ 12/30. PATIENT UNDERSTOOD THE SCHEDULE OF PAIN MANAGEMENT. WILL COME BACK FOR PAIN MEDICATION LATER WHEN THE TIME IS DUE AND PER PATIENT REQUESTS. LEFT LEG RED AND HOT TO TOUCH, ELEVATED WITH PILLOW. POC INSTRUCTED AND ENCOURAGED PATIENT TO CALL FOR CALENDER ROLL PRESS OPERATOR IF NEEDED. BED IN LOWEST POSITION WITH SIDE RAILS UP X 2. ALARM ON. CALL WESLEY WITHIN REACH. CONTINUE TO MONITOR FOR CHANGES Q1H AND PRN.
--- NOTE | 2018-11-19 22:30 | NUR ---
MEDICATED PATIENT FOR PAIN @ 01/29. CONTINUE TO MONITOR.
[2018-11-19 22:57] VITALS: BP 138/75
[2018-11-20] MEDS: ceFAZolin 1GM/50ML 50 ML IV SCH ×3 (00:03→15:58)
[2018-11-20] MEDS: ALPRAZolam 0.5 MG TAB PO PRN (00:07)
--- NOTE | 2018-11-20 03:27 | NUR ---
PATIENT SLEEPING. NO S/S OF DISTRESS NOTED. CONTINUE TO MONITOR.
[2018-11-20 05:55] VITALS: BP 111/64
[2018-11-20] MEDS: TORSEMIDE 20 MG TAB PO SCH ×2 (06:25→16:20)
[2018-11-20] MEDS: HYDROcodone-ACET 10/325MG TAB PO PRN ×2 (06:26→15:59)
--- NOTE | 2018-11-20 06:27 | NUR ---
MEDICATED PATIENT FOR PAIN @ 12/30. CONTINUE TO MONITOR.
[2018-11-20 09:00] VITALS: BP 99/54
[2018-11-20] MEDS: METOPROLOL SUCCINATE XL 50 MG TAB PO SCH (10:00)
[2018-11-20] MEDS: APIXABAN 2.5 MG TAB PO SCH ×2 (10:00→22:27)
[2018-11-20] MEDS: LOSARTAN POTASSIUM 50 MG TAB PO SCH ×2 (10:00→22:27)
[2018-11-20] MEDS: DOCUSATE SOD 100 MG CAP PO SCH ×2 (10:14→22:27)
[2018-11-20] MEDS: RANOLAZINE ER 500 MG TAB PO SCH ×2 (10:15→22:27)
[2018-11-20] MEDS: POTASSIUM CHL 10 Meq TABLET PO SCH ×2 (10:16→22:27)
[2018-11-20 13:17] VITALS: BP 104/66
--- NOTE | 2018-11-20 15:28 | NUR ---
Nutrition Assessment Notes please see attached link for complete assessment Est. Needs BW (78 kg): 3423-4335 kcal (23-25 kcal/kgBW), 62-78 gms pro (0.8-1.0 gms/kgBW r/t elev RFT). Will continue to monitor pertinent labs and reassess nutrient need prn Addendum: 11/20/18 at [address] Amended: Links added.
[2018-11-20 17:00] VITALS: BP 102/53
--- NOTE | 2018-11-20 19:22 | NUR ---
RECEIVED PATIENT FROM DAY SHIFT RN. PATIENT RESTING IN BED. NO S/S OF DISTRESS NOTED. PATIENT C/O PAIN @ 6/10 AFTER PAIN MEDICATION GIVEN EARLIER. PATIENT UNDERSTOOD THE SCHEDULE OF PAIN MANAGEMENT. WILL COME BACK FOR PAIN MEDICATION WHEN THE TIME IS DUE AND PER PATIENT REQUESTS. LEFT LEG RED AND HOT TO TOUCH, ELEVATED WITH PILLOW. POC INSTRUCTED AND ENCOURAGED PATIENT TO CALL FOR MEAT LOINER IF NEEDED. BED IN LOWEST POSITION WITH SIDE RAILS UP X 2. ALARM ON. CALL EWSLEY WITHIN REACH. CONTINUE TO MONITOR FOR CHANGES Q1H AND PRN.
[2018-11-20 22:00] VITALS: BP 119/61
[2018-11-21] MEDS: HYDROcodone-ACET 10/325MG TAB PO PRN ×3 (00:01→17:49)
[2018-11-21] MEDS: ALPRAZolam 0.5 MG TAB PO PRN ×2 (00:01→22:08)
--- NOTE | 2018-11-21 00:05 | NUR ---
MEDICATED PATIENT FOR PAIN @ 01/29. CONTINUE TO MONITOR.
[2018-11-21 05:42] VITALS: BP 115/68
[2018-11-21] MEDS: TORSEMIDE 20 MG TAB PO SCH ×2 (06:18→18:00)
--- NOTE | 2018-11-21 08:20 | NUR ---
Patient came back from the bathroom using her FW Walker from home. No untoward incident noted.
[2018-11-21] MEDS: ceFAZolin 1GM/50ML 50 ML IV SCH ×2 (08:26)
--- NOTE | 2018-11-21 08:28 | NUR ---
Patient stated her pain level at 10/10 at this time. [place] 10/325 PO given for pain as ordered.
[2018-11-21 09:00] VITALS: BP 134/66
[2018-11-21] MEDS: DOCUSATE SOD 100 MG CAP PO SCH ×2 (10:00→22:00)
[2018-11-21] MEDS: RANOLAZINE ER 500 MG TAB PO SCH ×2 (10:23→22:07)
[2018-11-21] MEDS: POTASSIUM CHL 10 Meq TABLET PO SCH ×2 (10:23→22:07)
[2018-11-21] MEDS: METOPROLOL SUCCINATE XL 50 MG TAB PO SCH (10:24)
[2018-11-21] MEDS: LOSARTAN POTASSIUM 50 MG TAB PO SCH ×2 (10:24→22:07)
[2018-11-21] MEDS: APIXABAN 2.5 MG TAB PO SCH ×2 (10:25→22:07)
--- NOTE | 2018-11-21 10:27 | NUR ---
Patient refused Colace, stated she had a bowel movement today.
[2018-11-21 13:00] VITALS: BP 113/60
--- NOTE | 2018-11-21 14:17 | NUR ---
assessment Patient will need a home health resumption order on discharge for Sofy luz. Addendum: 11/21/18 at 1417 by Andie GROVE Amended: Links added.
--- NOTE | 2018-11-21 14:30 | NUR ---
Patient's daughter called two times if Dr. Zuluaga will discharge the patient today. Informed the daughter we're waiting for Dr. Zuluaga to come over.
--- NOTE | 2018-11-21 16:20 | NUR ---
Dr. Zuluaga came over. ordered Levaquin 500 mg IVP daily, give on dose now, discontinue Ancef IV. Addendum: 11/21/18 at 1652 by Katey Reis RN one dose now
[2018-11-21 16:49] VITALS: BP 118/77
[2018-11-21] MEDS ORDERED: LEVOFLOXACIN 500MG 100 ML IV ONE (17:00)
--- NOTE | 2018-11-21 17:49 | NUR ---
Patient stated her pain level on her shoulder and arm at 10/10 at this time. [place] 10/325 PO given for pain as ordered.
--- NOTE | 2018-11-21 18:30 | NUR ---
Old wound with scab noted on the left forearm. Photos taken. Cleansed the wound with NS, pat dry, Opti-foam applied. Wound Care form placed on the Wound Care tray. Camera returned to Wei at Central Unit.
[2018-11-21 21:50] VITALS: BP 110/62
[2018-11-22] MEDS: HYDROcodone-ACET 10/325MG TAB PO PRN ×2 (02:16→10:50)
[2018-11-22 04:51] VITALS: BP 110/60
[2018-11-22] MEDS: TORSEMIDE 20 MG TAB PO SCH (06:44)
[2018-11-22 09:00] VITALS: BP 96/54
[2018-11-22] MEDS: RANOLAZINE ER 500 MG TAB PO SCH (10:00)
[2018-11-22] MEDS ORDERED: LEVOFLOXACIN 250MG 50 ML IV SCH (10:00)
[2018-11-22] MEDS: LOSARTAN POTASSIUM 50 MG TAB PO SCH (10:00)
[2018-11-22] MEDS: DOCUSATE SOD 100 MG CAP PO SCH (10:18)
[2018-11-22] MEDS: POTASSIUM CHL 10 Meq TABLET PO SCH (10:18)
[2018-11-22] MEDS: APIXABAN 2.5 MG TAB PO SCH (10:18)
[2018-11-22] MEDS: METOPROLOL SUCCINATE XL 50 MG TAB PO SCH (10:18)
--- NOTE | 2018-11-22 11:05 | NUR ---
WOUND CARE NOTE: Wound care in to see patient per wound care request regarding skin integrity issue that are noted present upon assessment. Bedside nurse took photograph of patient's skin issue upon discovery for reference. Patient is 88 years old female, with admitting diagnosis of A Fib RVR, CP. Patient is resting in bed in Rm 219B. She's awake, alert and fully oriented. Patient is in no stated pain at this time. Patient is able to turn and reposition self. Per bedside nurse's report, patient ambulates with assistance and uses BSC. Her current Lee score is 19. Noted 2.5x1.2cm open partial thickness wound to patient's L forearm. Wound is red with bright red periwound, scant serous drainage noted,no odor noted. Patient reported that she has had the R forearm wound "off and on for three months, will scab and open again". Cleansed wound with NS, patted dry with gauze, applied Thera honey gel and covered wound with Opti foam gentle dressing. Patient's Rt anterior upper thigh has reddened skin irritation, no drainage/odor noted. Cleansed patient's upper thigh with mild soap and water,patted dry, applied Z Guard cream. No pressure injury noted. Patient tolerated examination well. Repositioned patient for comfort. Bed in low position, call adler on hand with all safety precautions in placed. No further wound care monitoring needed at this time. RECOMMENDATION: BID/PRN cleaning and application of Z Guard cream to R upper thigh skin irritation/intertrigo, Q3Days/PRN dressing change to Lt. forearm wound per MD order, redistribute pressure points with pillows. Addendum: 11/22/18 at 1549 by Andressa Mercado RN Amended: Links added.
[2018-11-22 13:00] VITALS: BP 120/64
--- NOTE | 2018-11-22 14:33 | NUR ---
I received a page from nurse Astrid letting me know that patient has order to discharge home and resume [facility]-I asked her to fax face sheet, H&P and order to [facility] [phone] also provided her [facility]'s phone number to give to the patient.
--- NOTE | 2018-11-22 15:00 | NUR ---
Home health faxed Faxed to [facility] for Pt and Wound care per Dr. Zuluaga's orders. Faxed to [phone]. Phone number for [facility] given to patient.
--- NOTE | 2018-11-22 16:30 | NUR ---
DISCHARGE NOTE Discharge instructions given as ordered. Encourage to follow up with PMD as instructed. All questions and concerns addressed. Patient verbalized understanding. Medication reconciliation form completed and copy given to patient. Home medications held in Pharmacy returned to patient. IV removed with catheter intact, pressure dressing applied, guajardo catheter removed. Telemetry unit returned to ICU. Patient taken to vehicle via wheelchair with all personal belongings, accompanied by staff and family member. No distress noted at time of departure.
[2018-11-22 16:47] VITALS: BP 129/60
== END 2018-11-22 16:30 | disposition home or self-care (01) | DRG 872 ==
LOC: ER 11:16 → TELE 11:17 → TELE-CENTR 20:06
PROVIDERS: ADMIT Internal Medicine Cardiovascular Disease; ATTEND Internal Medicine Cardiovascular Disease
DX: A41.9 Sepsis, unspecified organism (principal); L03.116 Cellulitis of left lower limb; D68.59 Other primary thrombophilia; I13.0 Hypertensive heart and chronic kidney disease with heart failure and stage 1 through stage 4 chronic kidney disease, or unspecified chronic kidney disease; I50.32 Chronic diastolic (congestive) heart failure; I48.91 Unspecified atrial fibrillation; J44.9 Chronic obstructive pulmonary disease, unspecified; E83.52 Hypercalcemia; E87.6 Hypokalemia; D64.9 Anemia, unspecified; N18.3 Chronic kidney disease, stage 3 (moderate); I25.10 Atherosclerotic heart disease of native coronary artery without angina pectoris; G47.00 Insomnia, unspecified; Z86.73 Personal history of transient ischemic attack (TIA), and cerebral infarction without residual deficits; I25.2 Old myocardial infarction; Z90.710 Acquired absence of both cervix and uterus; Z90.49 Acquired absence of other specified parts of digestive tract; Z95.5 Presence of coronary angioplasty implant and graft; Z79.899 Other long term (current) drug therapy; Z79.51 Long term (current) use of inhaled steroids; Z79.01 Long term (current) use of anticoagulants; Z81.1 Family history of alcohol abuse and dependence; Z82.5 Family history of asthma and other chronic lower respiratory diseases; Z82.3 Family history of stroke; Z80.9 Family history of malignant neoplasm, unspecified; Z81.2 Family history of tobacco abuse and dependence
CPT/HCPCS: 36415; 71045; 80053; 81001; 83605; 83880; 84484; 85025; 85610; 85730; 87040; 93005; 93971; 97163; G0378; J0690; J0696; J1956; J3490

== ENCOUNTER → 2018-12-11 | Outpatient (CLI) | payer MEDICARE, OTHER ==
[~2018-12-11] MED LIST changes: +FUROSEMIDE 100 MG/10ML VIAL IV ONE; +FUROSEMIDE 20 MG/2 ML VIAL ONE; +FUROSEMIDE INJECTION 10 ML ONE; +KETOROLAC TROMETH 60MG/2ML VIAL IM ONE; +KETOROLAC TROMETH 60MG/2ML VIAL ONE; -MAGN250T22 PO; +POTA10TA51 PO; -POTA12PO2 PO; +POTASSIUM CHL 10 Meq TABLET PO ONE; +POTASSIUM CHL 20 Meq TABLET PO ONE; -TORS1TAB10 PO; +TORS20TA20 PO
[2018-12-11 11:10] VITALS: BP 129/66
[2018-12-11 12:00] VITALS: BP 142/81
--- NOTE | 2018-12-11 12:00 | NUR ---
IN WITH DAUGHTER IN ATTENDANCE. WITHOUT DISTRESS OR DISCOMFORT. AMBULATES WITH USE OF WALKER. GAIT SLOW BUT STEADY. HECTOR BOOTS IN PLACE TO BILATERAL LOWER EXTREMITIES. STANDING ORDERS IN PLACE FOR IVP LASIX. MEDICATION ADMINISTERED PER ORDERS. ALSO RATES PAIN 8/10 CURRENTLY TO JOINTS R/T OSTEOARTHRITIS. MEDICATED PER ORDER. DISCHARGED TO SELF CARE WITH DAUGHTER IN ATTENDANCE. MEDICATION ADMINISTRATION LASIX IVP AT 1144 POTASSIUM PO TORADOL IM TO RIGHT GLUT AT 1158 FOR PAIN 8/10
[2018-12-11 15:57] LABS: Basophils # (auto) 0 uL; Eosinophils # (auto) 0.1 uL; Hematocrit 36.4 % (36.0-46.0); Hemoglobin 12.1 g/dL (12.2-16.2); Monocytes # (auto) 0.9 uL; Neutrophils % (auto) 78.7 % (37.0-80.0)
[2018-12-11 15:58] LABS: Albumin 3.4 g/dL (3.4-5.0); Calcium 8.9 mg/dL (8.5-10.1); Magnesium 2.8 mg/dL (1.6-2.6); Potassium 3.5 mmol/L (3.5-5.1)
[2018-12-11 15:59] LABS: Basophils % (auto) 0.4 % (0.0-2.0); Eosinophils % (auto) 0.6 % (0.0-7.0); Lymphocytes % (auto) 10.9 % (10.0-50.0); Mean Corpuscular Hemoglobin 34.5 pg (28.0-32.0); Mean Corpuscular Hgb Conc. 33.1 g/dL (32.0-36.0); Monocytes % (auto) 9.4 % (0.0-12.0); Neutrophils # (auto) 7.2 uL; Platelet Count (auto) 240 10^3/uL (140-450); Red Cell Distribution Width 14.9 % (11.8-14.3); White Blood Cell 9.2 10^3/uL (4.4-10.8)
[2018-12-11 16:01] LABS: BUN/Creatinine Ratio 51.2; Total Protein 6.6 g/dL (6.4-8.2)
== END | disposition home or self-care (01) ==
LOC: CHF HDHVI 11:08
PROVIDERS: ATTEND Internal Medicine Cardiovascular Disease
DX: I13.0 Hypertensive heart and chronic kidney disease with heart failure and stage 1 through stage 4 chronic kidney disease, or unspecified chronic kidney disease (principal); I50.42 Chronic combined systolic (congestive) and diastolic (congestive) heart failure; N18.3 Chronic kidney disease, stage 3 (moderate); D64.9 Anemia, unspecified; G89.29 Other chronic pain; E83.40 Disorders of magnesium metabolism, unspecified; R53.83 Other fatigue; I25.10 Atherosclerotic heart disease of native coronary artery without angina pectoris; I25.2 Old myocardial infarction; J44.9 Chronic obstructive pulmonary disease, unspecified; E78.5 Hyperlipidemia, unspecified; I48.0 Paroxysmal atrial fibrillation; M19.90 Unspecified osteoarthritis, unspecified site; Z79.51 Long term (current) use of inhaled steroids; Z90.49 Acquired absence of other specified parts of digestive tract; Z86.73 Personal history of transient ischemic attack (TIA), and cerebral infarction without residual deficits; Z79.899 Other long term (current) drug therapy; Z79.01 Long term (current) use of anticoagulants; Z90.710 Acquired absence of both cervix and uterus; Z95.5 Presence of coronary angioplasty implant and graft
CPT/HCPCS: 36415; 80053; 83735; 85025; 96372; 96374; G0463; J1885; J1940

== ENCOUNTER → 2019-02-05 | Outpatient (CLI) | payer MEDICARE, OTHER ==
[~2019-02-05] MED LIST changes: +CYANOCOBALAMIN (B-12) 1000 MCG/1 ML VIAL IM ONE; +CYANOCOBALAMIN (B-12) 1000 MCG/1 ML VIAL ONE; -FUROSEMIDE 100 MG/10ML VIAL IV ONE; -FUROSEMIDE 20 MG/2 ML VIAL ONE; +FUROSEMIDE 40 MG/4 ML VIAL IV ONE; +FUROSEMIDE 40 MG/4 ML VIAL ONE; -FUROSEMIDE INJECTION 10 ML ONE; -POTASSIUM CHL 10 Meq TABLET PO ONE; -POTASSIUM CHL 20 Meq TABLET PO ONE; +POTASSIUM EFFERVESENT TAB 25 MEQ ONE; +POTASSIUM EFFERVESENT TAB 25 MEQ PO ONE
[2019-02-05 11:00] VITALS: BP 109/62
[2019-02-05 12:20] VITALS: BP 109/62
--- NOTE | 2019-02-05 12:20 | NUR ---
IN TO CLINIC WITH DAUGHTER IN ATTENDANCE. USING WALKER WITH STEADY GAIT. HECTOR BOOTS INTACT TO BILATERAL LOWER EXTRMITIES. PT REPORTS HAVING HAD PNEUMONIA RECENTLY. RATES PAIN 8/10 CURRENTLY RELATED TO RHEUMATOID ARTHRITIS. PT REPORTS ABDOMINAL SWELLING . CLINIC PROVIDER CONSULTED. LABS DRAWN AND SENT. MEDICATED PER ORDER. VS WNL. DISCHARGED TO SELF CARE WITH FAMILY IN ATTENDANCE IN NO DISTRESS. MEDICATION ADMINISTRATION FUROSEMIDE 40 MG IVP AT 1212 POTASSIUM EFFERVESCENT 25 MEQ PO AT 1212 TORADOL 30 MG IM TO RIGHT GLUT AT 1212 VIT B12 1000 MCG IM TO RIGHT DELTOID
[2019-02-05 16:00] LABS: Eosinophils % (auto) 1.4 % (0.0-7.0); Lymphocytes % (auto) 14.5 % (10.0-50.0); Monocytes % (auto) 9.9 % (0.0-12.0); Neutrophils % (auto) 73.9 % (37.0-80.0); White Blood Cell 6.9 10^3/uL (4.4-10.8)
[2019-02-05 16:01] LABS: Basophils # (auto) 0 uL; Basophils % (auto) 0.3 % (0.0-2.0); Eosinophils # (auto) 0.1 uL; Hematocrit 33.5 % (36.0-46.0); Hemoglobin 11.2 g/dL (12.2-16.2); Mean Corpuscular Hemoglobin 33.6 pg (28.0-32.0); Mean Corpuscular Hgb Conc. 33.3 g/dL (32.0-36.0); Mean Corpuscular Volume 100.8 fL (80.0-100.0); Monocytes # (auto) 0.7 uL; Neutrophils # (auto) 5.1 uL; Nucleated Red Blood Cells % 0.4 %; Platelet Count (auto) 265 10^3/uL (140-450); Red Blood Cells 3.32 10^6/uL (4.0-5.20)
[2019-02-05 16:06] LABS: Albumin 3.3 g/dL (3.4-5.0); Calcium 9.4 mg/dL (8.5-10.1); Magnesium 2.6 mg/dL (1.6-2.6); Potassium 3.9 mmol/L (3.5-5.1)
[2019-02-05 16:09] LABS: BUN/Creatinine Ratio 35.3; Bilirubin, Total 1.1 mg/dL (0.2-1.0); Total Protein 6.5 g/dL (6.4-8.2)
== END | disposition home or self-care (01) ==
LOC: CHF HDHVI 11:06
PROVIDERS: ATTEND Internal Medicine Cardiovascular Disease
DX: I13.0 Hypertensive heart and chronic kidney disease with heart failure and stage 1 through stage 4 chronic kidney disease, or unspecified chronic kidney disease (principal); I50.42 Chronic combined systolic (congestive) and diastolic (congestive) heart failure; N18.3 Chronic kidney disease, stage 3 (moderate); M06.9 Rheumatoid arthritis, unspecified; R53.83 Other fatigue; D64.9 Anemia, unspecified; E83.40 Disorders of magnesium metabolism, unspecified
CPT/HCPCS: 36415; 80053; 83735; 85025; 96372; 96374; G0463; J1885; J1940; J3420

== ENCOUNTER → 2019-04-02 | Outpatient (CLI) | payer MEDICARE, OTHER ==
[~2019-04-02] MED LIST changes: -FUROSEMIDE 40 MG/4 ML VIAL IV ONE; -FUROSEMIDE 40 MG/4 ML VIAL ONE; -POTASSIUM EFFERVESENT TAB 25 MEQ ONE; -POTASSIUM EFFERVESENT TAB 25 MEQ PO ONE
[2019-04-02 11:50] VITALS: BP 122/55
--- NOTE | 2019-04-02 11:50 | NUR ---
Discharge Instructions See e-MAR for any mediations given with this visit. Patient education given on disease process. Patient verbalized understanding. Previous labs reviewed. Patient discharged in stable condition with after care instructions and follow up appointment. PT COMPLAINED OF GENERALIZED PAIN 10/29 , TORADOL GIVEN AND PAIN RELIEVED SOME UPON DISCHARGE MEDICATIONS VITAMIN B12 IM 1000 MCG IM X 1 RIGHT DELTOID LOT # [id number] EXP 11/09 TORADOL 30 MG IM RIGHT GLUTE LOT # [id number] EXP 07/10
[2019-04-02 15:52] LABS: Basophils # (auto) 0 uL; Eosinophils # (auto) 0.2 uL; Hemoglobin 11.1 g/dL (12.2-16.2); Monocytes # (auto) 0.6 uL; Nucleated Red Blood Cells % 0.4 %
[2019-04-02 15:54] LABS: Basophils % (auto) 0.6 % (0.0-2.0); Eosinophils % (auto) 4.6 % (0.0-7.0); Hematocrit 33.6 % (36.0-46.0); Lymphocytes # (auto) 0.9 uL; Lymphocytes % (auto) 16.5 % (10.0-50.0); Mean Corpuscular Hemoglobin 34.1 pg (28.0-32.0); Mean Corpuscular Hgb Conc. 33.1 g/dL (32.0-36.0); Mean Corpuscular Volume 102.9 fL (80.0-100.0); Monocytes % (auto) 10.8 % (0.0-12.0); Neutrophils # (auto) 3.6 uL; Neutrophils % (auto) 67.5 % (37.0-80.0); Platelet Count (auto) 179 10^3/uL (140-450); Red Blood Cells 3.27 10^6/uL (4.0-5.20); Red Cell Distribution Width 15.5 % (11.8-14.3); White Blood Cell 5.3 10^3/uL (4.4-10.8)
[2019-04-02 15:57] LABS: Albumin 3.5 g/dL (3.4-5.0); Calcium 9.1 mg/dL (8.5-10.1); Magnesium 2.6 mg/dL (1.6-2.6); Potassium 4.4 mmol/L (3.5-5.1)
[2019-04-02 16:00] LABS: BUN/Creatinine Ratio 37.8; Bilirubin, Total 0.9 mg/dL (0.2-1.0); Total Protein 6.4 g/dL (6.4-8.2)
== END | disposition home or self-care (01) ==
LOC: CHF HDHVI 11:17
PROVIDERS: ATTEND Internal Medicine Cardiovascular Disease
DX: R53.83 Other fatigue (principal); I50.9 Heart failure, unspecified; E83.40 Disorders of magnesium metabolism, unspecified; D64.9 Anemia, unspecified; G89.29 Other chronic pain
CPT/HCPCS: 36415; 80053; 83735; 83880; 85025; 96372; G0463; J1885; J3420

== ENCOUNTER → 2019-12-01 | Outpatient (CLI) | payer MEDICARE, OTHER ==
[~2019-12-01] VITALS: Ht 30.5 cm; Wt 0.5 kg
[~2019-12-01] MED LIST changes: +FUROSEMIDE 100 MG/10ML VIAL IV ONE; +FUROSEMIDE 20 MG/2 ML VIAL ONE; +FUROSEMIDE INJECTION 10 ML ONE; -KETOROLAC TROMETH 60MG/2ML VIAL IM ONE; -KETOROLAC TROMETH 60MG/2ML VIAL ONE; +POTASSIUM CHL 10 Meq TABLET PO ONE; +POTASSIUM CHL 20 Meq TABLET PO ONE
[2019-12-01 12:30] VITALS: BP 138/84
[2019-12-01 16:00] LABS: Albumin 3.1 g/dL (3.4-5.0); Basophils # (auto) 0 10 ^3/uL (0-0.2); Calcium 8.6 mg/dL (8.5-10.1); Eosinophils # (auto) 0.1 10 ^3/uL (0-0.8); Lymphocytes # (auto) 0.9 10 ^3/uL (0.4-5.4); Monocytes # (auto) 0.7 10 ^3/uL (0-1.3); Neutrophils # (auto) 4.1 10 ^3/uL (1.6-8.6); Potassium 4.2 mmol/L (3.5-5.1); White Blood Cell 5.8 10^3/uL (4.4-10.8)
[2019-12-01 16:02] LABS: Basophils % (auto) 0.6 % (0.0-2.0); Eosinophils % (auto) 1.2 % (0.0-7.0); Hematocrit 33.5 % (36.0-46.0); Lymphocytes % (auto) 14.9 % (10.0-50.0); Mean Corpuscular Hemoglobin 35.3 pg (28.0-32.0); Mean Corpuscular Hgb Conc. 32.9 g/dL (32.0-36.0); Mean Corpuscular Volume 107.4 fL (80.0-100.0); Monocytes % (auto) 11.7 % (0.0-12.0); Neutrophils % (auto) 71.6 % (37.0-80.0); Nucleated Red Blood Cells % 0.1 %; Platelet Count (auto) 211 10^3/uL (140-450); Red Blood Cells 3.12 10^6/uL (4.0-5.20); Red Cell Distribution Width 17.1 % (11.8-14.3)
[2019-12-01 16:06] LABS: BUN/Creatinine Ratio 36.5; Bilirubin, Total 0.6 mg/dL (0.2-1.0); Total Protein 6.3 g/dL (6.4-8.2)
== END | disposition home or self-care (01) ==
LOC: CHF HDHVI 11:16
PROVIDERS: ATTEND Internal Medicine Cardiovascular Disease
DX: I11.0 Hypertensive heart disease with heart failure (principal); I50.42 Chronic combined systolic (congestive) and diastolic (congestive) heart failure; I25.10 Atherosclerotic heart disease of native coronary artery without angina pectoris; I73.9 Peripheral vascular disease, unspecified; I42.8 Other cardiomyopathies; R60.9 Edema, unspecified; K90.9 Intestinal malabsorption, unspecified; E03.9 Hypothyroidism, unspecified; D51.9 Vitamin B12 deficiency anemia, unspecified; Z79.899 Other long term (current) drug therapy
CPT/HCPCS: 36415; 80053; 82306; 82607; 83036; 83735; 83880; 84443; 85025; 96372; 96374; G0463; J1940; J3420

== ENCOUNTER → 2019-12-07 | Outpatient (CLI) | payer MEDICARE, OTHER ==
[~2019-12-07] MED LIST changes: +BUMETANIDE 1mg/4ml VIAL (0.25mg/ml) ONE; +BUMETANIDE 2.5mg/10ml (0.25 mg/ml) INJ IV ONE; -CYANOCOBALAMIN (B-12) 1000 MCG/1 ML VIAL IM ONE; -CYANOCOBALAMIN (B-12) 1000 MCG/1 ML VIAL ONE; -FUROSEMIDE 100 MG/10ML VIAL IV ONE; -FUROSEMIDE 20 MG/2 ML VIAL ONE; -FUROSEMIDE INJECTION 10 ML ONE; -POTASSIUM CHL 10 Meq TABLET PO ONE; -POTASSIUM CHL 20 Meq TABLET PO ONE
[2019-12-07 10:50] VITALS: BP 105/66
--- NOTE | 2019-12-07 10:50 | NUR ---
CLINIC PT ARRIVED TO THE CHF CLINIC FOR EVAL AND TX. A/OX4, AMBULATORY WITH WALKER AND ASSISTED BY DAUGHTER. 2+ EDEMA TO THE LOWER EXTREMITIES. HECTOR BOOTS ON AND APPLIED BY HH. BREATHING IS EVEN AND UNLABORED. ORDERS RECEIVED AND CARRIED OUT.
--- NOTE | 2019-12-07 10:53 | NUR ---
LABS DRAWN AND SENT
[2019-12-07 12:00] VITALS: BP 116/70
--- NOTE | 2019-12-07 12:00 | NUR ---
Discharge Instructions See e-MAR for any mediations given with this visit. Patient education given on disease process. Patient verbalized understanding. Previous labs reviewed. Patient discharged in stable condition with after care instructions and follow up appointment IN 1 WEEK. NOTE BUMEX IVP ADMIN BY CATARINO ROCHA
[2019-12-07 16:04] LABS: Potassium 4.3 mmol/L (3.5-5.1)
== END | disposition home or self-care (01) ==
LOC: CHF HDHVI 10:57
PROVIDERS: ATTEND Internal Medicine Cardiovascular Disease
DX: E87.6 Hypokalemia (principal); R94.4 Abnormal results of kidney function studies; Z79.899 Other long term (current) drug therapy
CPT/HCPCS: 36415; 82565; 84132; 84520; 96374; G0463; J3490

== ENCOUNTER → 2019-12-14 | Outpatient (CLI) | payer MEDICARE, OTHER ==
[~2019-12-14] MED LIST changes: -BUMETANIDE 1mg/4ml VIAL (0.25mg/ml) ONE; -BUMETANIDE 2.5mg/10ml (0.25 mg/ml) INJ IV ONE; +FUROSEMIDE 100 MG/10ML VIAL IV ONE; +FUROSEMIDE 20 MG/2 ML VIAL ONE; +FUROSEMIDE INJECTION 10 ML ONE; +KETOROLAC TROMETH 30 MG/ML 1ML VIAL IV ONE; +KETOROLAC TROMETH 60MG/2ML VIAL ONE; +POTASSIUM CHL 10 Meq TABLET PO ONE; +POTASSIUM CHL 20 Meq TABLET PO ONE
--- NOTE | 2019-12-14 11:00 | NUR ---
CLINIC PT ARRIVED TO THE CHF CLINIC FOR WEEKLY EVAL AND TX PER MD ORDERS. A/OX4, AMBULATORY WITH WALKER. ASSISTED BY DAUGHTER. PT HAS A 2.6 LB WT INCREASE SINCE LAST VISIT ON 12/07/19. BREATHING IS EVEN AND UNLABORED
--- NOTE | 2019-12-14 11:55 | NUR ---
LABS DRAWN AND SENT
[2019-12-14 12:15] VITALS: BP 137/80
--- NOTE | 2019-12-14 12:15 | NUR ---
Discharge Instructions See e-MAR for any mediations given with this visit. Patient education given on disease process. Patient verbalized understanding. Previous labs reviewed. Patient discharged in stable condition with after care instructions and follow up appointment IN 1 WEEK. NOTE LASIX IVP ADMIN BY CATARINO ROCHA TORADOL IM ADMIN BY CATARINO HAIRSTON LOT#[id number] EXP 05/13 KDUR PO ADMIN BY CATARINO ORCHA
[2019-12-14 16:15] LABS: BUN/Creatinine Ratio 36.2; Calcium 8.6 mg/dL (8.5-10.1); Magnesium 2.8 mg/dL (1.6-2.6); Potassium 3.7 mmol/L (3.5-5.1)
== END | disposition home or self-care (01) ==
LOC: CHF HDHVI 10:45
PROVIDERS: ATTEND Internal Medicine Cardiovascular Disease
DX: I11.0 Hypertensive heart disease with heart failure (principal); I50.23 Acute on chronic systolic (congestive) heart failure; E83.40 Disorders of magnesium metabolism, unspecified; I25.10 Atherosclerotic heart disease of native coronary artery without angina pectoris; I42.8 Other cardiomyopathies; I73.9 Peripheral vascular disease, unspecified; E03.9 Hypothyroidism, unspecified; Z79.899 Other long term (current) drug therapy
CPT/HCPCS: 36415; 80048; 83735; 83880; 96372; 96374; G0463; J1885; J1940

== ENCOUNTER → 2019-12-22 | Outpatient (CLI) | payer MEDICARE, OTHER ==
[~2019-12-22] MED LIST changes: -FUROSEMIDE 20 MG/2 ML VIAL ONE; -KETOROLAC TROMETH 30 MG/ML 1ML VIAL IV ONE; -KETOROLAC TROMETH 60MG/2ML VIAL ONE; -POTASSIUM CHL 10 Meq TABLET PO ONE; -POTASSIUM CHL 20 Meq TABLET PO ONE; +POTASSIUM EFFERVESENT TAB 25 MEQ GT ONE; +POTASSIUM EFFERVESENT TAB 25 MEQ ONE; +metOLazone 5 MG TAB ONE; +metOLazone 5 MG TAB PO ONE
[2019-12-22 13:30] VITALS: BP 132/75
[2019-12-22 15:47] LABS: Basophils # (auto) 0 10 ^3/uL (0-0.2); Eosinophils # (auto) 0.1 10 ^3/uL (0-0.8); Hematocrit 35.7 % (36.0-46.0); Lymphocytes # (auto) 1.4 10 ^3/uL (0.4-5.4); Monocytes # (auto) 0.8 10 ^3/uL (0-1.3)
[2019-12-22 15:49] LABS: Basophils % (auto) 0.5 % (0.0-2.0); Eosinophils % (auto) 0.9 % (0.0-7.0); Hemoglobin 11.6 g/dL (12.2-16.2); Lymphocytes % (auto) 17.4 % (10.0-50.0); Mean Corpuscular Hgb Conc. 32.6 g/dL (32.0-36.0); Mean Corpuscular Volume 107.5 fL (80.0-100.0); Monocytes % (auto) 10.3 % (0.0-12.0); Neutrophils # (auto) 5.6 10 ^3/uL (1.6-8.6); Neutrophils % (auto) 70.9 % (37.0-80.0); Nucleated Red Blood Cells % 0.5 %; Platelet Count (auto) 217 10^3/uL (140-450); Red Blood Cells 3.32 10^6/uL (4.0-5.20); Red Cell Distribution Width 16.1 % (11.8-14.3); White Blood Cell 7.9 10^3/uL (4.4-10.8)
[2019-12-22 15:56] LABS: Magnesium 2.8 mg/dL (1.6-2.6); Potassium 4.3 mmol/L (3.5-5.1)
== END | disposition home or self-care (01) ==
LOC: CHF HDHVI 11:09
PROVIDERS: ATTEND Internal Medicine Cardiovascular Disease
DX: I51.7 Cardiomegaly (principal); I70.0 Atherosclerosis of aorta; I50.23 Acute on chronic systolic (congestive) heart failure; E83.40 Disorders of magnesium metabolism, unspecified; R06.02 Shortness of breath; D64.9 Anemia, unspecified; R09.89 Other specified symptoms and signs involving the circulatory and respiratory systems; Z79.899 Other long term (current) drug therapy
CPT/HCPCS: 36415; 71046; 82565; 83735; 83880; 84132; 84520; 85025; 93005; 96374; G0463; J1940

== ENCOUNTER → 2019-12-25 | Outpatient (CLI) | payer MEDICARE, OTHER ==
[~2019-12-25] MED LIST changes: -FUROSEMIDE 100 MG/10ML VIAL IV ONE; -FUROSEMIDE INJECTION 10 ML ONE; -POTASSIUM EFFERVESENT TAB 25 MEQ GT ONE; -POTASSIUM EFFERVESENT TAB 25 MEQ ONE; -metOLazone 5 MG TAB ONE; -metOLazone 5 MG TAB PO ONE
[2019-12-25 11:40] VITALS: BP 130/70
[2019-12-25 12:03] LABS: Calcium 8.9 mg/dL (8.5-10.1); Potassium 3.4 mmol/L (3.5-5.1)
[2019-12-25 12:06] LABS: BUN/Creatinine Ratio 35.9
== END | disposition home or self-care (01) ==
LOC: CHF HDHVI 12-22 11:15
PROVIDERS: ATTEND Internal Medicine Cardiovascular Disease
DX: I50.23 Acute on chronic systolic (congestive) heart failure (principal)
CPT/HCPCS: 36415; 80048; G0463

== ENCOUNTER → 2020-02-01 | Outpatient (CLI) | payer MEDICARE, OTHER ==
[2020-02-01 16:12] LABS: Potassium 3.7 mmol/L (3.5-5.1)
[2020-02-01 16:17] LABS: Calcium 9.5 mg/dL (8.5-10.1)
== END | disposition home or self-care (01) ==
LOC: LAB 14:34
PROVIDERS: ATTEND Internal Medicine Cardiovascular Disease
DX: I10 Essential (primary) hypertension (principal)
CPT/HCPCS: 36415; 80048

== ENCOUNTER → 2020-08-03 | Outpatient (CLI) | payer MEDICARE, OTHER ==
[~2020-08-03] MED LIST changes: +cefTRIAXone 1GM/50ML D5W 50 ML IV ONE
[2020-08-03 09:40] VITALS: BP 122/70
[2020-08-03 10:28] VITALS: BP 116/67
== END | disposition home or self-care (01) ==
LOC: CHF HDHVI 09:44
PROVIDERS: ATTEND Internal Medicine Cardiovascular Disease
DX: L03.115 Cellulitis of right lower limb (principal); I11.0 Hypertensive heart disease with heart failure; I50.22 Chronic systolic (congestive) heart failure; Z79.899 Other long term (current) drug therapy
CPT/HCPCS: 96365; G0463; J0696

== ENCOUNTER 2020-09-09 15:28 | Inpatient (IN) | payer MEDICARE, OTHER ==
[~2020-09-09] VITALS: Ht 162.6 cm; Wt 81.5 kg
[~2020-09-09 15:28] MED LIST changes: -CYANOCOBALAMIN (B-12) 1000 MCG/1 ML VIAL IM ONE; -CYANOCOBALAMIN (B-12) 1000 MCG/1 ML VIAL ONE; -FURO40TA4 PO; -MAGN400T40 OR; -METO5TAB5 PO; -MULTIPLE VIT 10 ML IV ONE; -MVI in SODIUM CHLORIDE 0.9% 500 ML IVB ONE; -POTA-180 PO
[2020-09-09 16:36] LABS: Basophils # (auto) 0 10 ^3/uL (0-0.2); Basophils % (auto) 0.4 % (0.0-2.0); Eosinophils # (auto) 0.2 10 ^3/uL (0-0.8); Lymphocytes # (auto) 0.4 10 ^3/uL (0.4-5.4); Monocytes # (auto) 0.6 10 ^3/uL (0-1.3); Monocytes % (auto) 7.8 % (0.0-12.0); Red Cell Distribution Width 16.3 % (11.8-14.3)
[2020-09-09 16:39] LABS: Eosinophils % (auto) 2.4 % (0.0-7.0); Hematocrit 33.7 % (36.0-46.0); Hemoglobin 11.8 g/dL (12.2-16.2); Lymphocytes % (auto) 5.7 % (10.0-50.0); Mean Corpuscular Hemoglobin 37.6 pg (28.0-32.0); Mean Corpuscular Volume 107.3 fL (80.0-100.0); Neutrophils # (auto) 6.2 10 ^3/uL (1.6-8.6); Neutrophils % (auto) 83.7 % (37.0-80.0); Nucleated Red Blood Cells % 0.1 %; Platelet Count (auto) 199 10^3/uL (140-450); Red Blood Cells 3.14 10^6/uL (4.0-5.20); White Blood Cell 7.4 10^3/uL (4.4-10.8)
[2020-09-09 16:50] LABS: INR 1.08 (0.9-1.15); Partial Thromboplastin Time 28.5 sec (23.0-31.2)
[2020-09-09 16:54] LABS: Anion Gap 6 (5-15); Calcium 9.5 mg/dL (8.5-10.1); Carbon Dioxide 30 mmol/L (21-32); Chloride 104 mmol/L (98-107); Potassium 3.6 mmol/L (3.5-5.1); Sodium 140 mmol/L (136-145)
[2020-09-09 16:57] LABS: Alanine Aminotransferase 15 U/L (13-56); Aspartate Aminotransferase 16 U/L (15-37); GFR African American 35 mL/min; GFR Non-African American 29 mL/min; Glucose 168 mg/dL (74-106)
[2020-09-09 17:02] LABS: Alkaline Phosphatase 74 U/L (45-117); Bilirubin, Total 1.5 mg/dL (0.2-1.0); Total Protein 7.3 g/dL (6.4-8.2)
[2020-09-09 17:12] LABS: Blood Urea Nitrogen 85 mg/dL (7-18)
[2020-09-09] MEDS ORDERED: NITROGLYCERIN 0.4 MG SL TAB SL PRN (18:15)
[2020-09-09] MEDS ORDERED: MORPHINE SULF INJ 2 MG/ML SYRINGE 1ML IV PRN (18:15)
[2020-09-09 19:28] LABS: Urine Bacteria NONE SEEN /hpf (None Seen); Urine Blood Negative /uL (Negative); Urine Specific Gravity 1.014 (1.001-1.035); Urine WBC 1 /hpf (0 - 5)
[2020-09-09] MEDS: DOBUTamine 1000MCG/ML 250 ML IV SCH (20:17)
[2020-09-09] MEDS: SODIUM CHLORIDE 0.9% 1,000 ML IV SCH (20:17)
[2020-09-09 23:30] VITALS: BP 146/77
[2020-09-09] MEDS: HYDROcodone-ACET 10/325MG TAB PO PRN (23:31)
[2020-09-10] MEDS: HYDROcodone-ACET 10/325MG TAB PO PRN ×3 (04:37→17:14)
[2020-09-10 05:32] VITALS: BP 133/77
[2020-09-10] MEDS ORDERED: POTA-180 PO (05:56)
[2020-09-10] MEDS ORDERED: MAGN400T40 OR (05:56)
[2020-09-10 08:15] VITALS: BP 106/54
[2020-09-10 08:32] VITALS: BP 106/54
[2020-09-10] MEDS: DOBUTamine 1000MCG/ML 250 ML IV SCH ×2 (08:47→18:40)
[2020-09-10 12:58] VITALS: BP 103/58
[2020-09-10] MEDS: SODIUM CHLORIDE 0.9% 1,000 ML IV SCH (14:26)
[2020-09-10 16:37] VITALS: BP 114/61
[2020-09-10] MEDS: ALPRAZolam 0.25 MG TAB PO PRN (18:40)
[2020-09-10 22:00] VITALS: BP 126/64
[2020-09-11] VITALS (7 sets, daily range): BP systolic 105–134; BP diastolic 56–74
[2020-09-11] MEDS: HYDROcodone-ACET 10/325MG TAB PO PRN ×3 (04:40→18:11)
[2020-09-11] MEDS: DOBUTamine 1000MCG/ML 250 ML IV SCH (05:34)
[2020-09-11 06:18] LABS: Basophils # (auto) 0 10 ^3/uL (0-0.2); Eosinophils # (auto) 0.2 10 ^3/uL (0-0.8); Eosinophils % (auto) 2.3 % (0.0-7.0); Hemoglobin 10.1 g/dL (12.2-16.2); Lymphocytes # (auto) 0.3 10 ^3/uL (0.4-5.4); Mean Corpuscular Volume 107.6 fL (80.0-100.0); Monocytes # (auto) 0.6 10 ^3/uL (0-1.3); Red Cell Distribution Width 16.2 % (11.8-14.3)
[2020-09-11 06:20] LABS: Basophils % (auto) 0.4 % (0.0-2.0); Hematocrit 28.1 % (36.0-46.0); Lymphocytes % (auto) 4.4 % (10.0-50.0); Mean Corpuscular Hemoglobin 38.7 pg (28.0-32.0); Mean Corpuscular Hgb Conc. 35.9 g/dL (32.0-36.0); Monocytes % (auto) 7.8 % (0.0-12.0); Neutrophils % (auto) 85.1 % (37.0-80.0); Platelet Count (auto) 170 10^3/uL (140-450); Red Blood Cells 2.61 10^6/uL (4.0-5.20); White Blood Cell 7.1 10^3/uL (4.4-10.8)
[2020-09-11 06:37] LABS: BUN/Creatinine Ratio 42.2; Calcium 8.6 mg/dL (8.5-10.1); Potassium 3.6 mmol/L (3.5-5.1)
[2020-09-11] MEDS: SODIUM CHLORIDE 0.9% 1,000 ML IV SCH (09:24)
[2020-09-11] MEDS ORDERED: DOBUTamine 1000MCG/ML 250 ML IV SCH (14:45)
[2020-09-11 16:20] LABS: Albumin 2.3 g/dL (3.4-5.0); BUN/Creatinine Ratio 37.9; Calcium 8.7 mg/dL (8.5-10.1)
[2020-09-11 16:26] LABS: Bilirubin, Total 1.8 mg/dL (0.2-1.0); Total Protein 6.3 g/dL (6.4-8.2)
[2020-09-11] MEDS: ALPRAZolam 0.25 MG TAB PO PRN (22:17)
[2020-09-11] MEDS: DOCUSATE SOD 100 MG CAP PO SCH (22:18)
[2020-09-12] VITALS (9 sets, daily range): BP systolic 105–144; BP diastolic 67–85
[2020-09-12] MEDS: HYDROcodone-ACET 10/325MG TAB PO PRN ×3 (06:33→21:59)
[2020-09-12] MEDS: DOCUSATE SOD 100 MG CAP PO SCH ×2 (08:57→21:58)
[2020-09-12 09:35] LABS: Urine Bacteria FEW /hpf (None Seen); Urine Blood 1+ /uL (Negative); Urine Hyaline Cast FEW /lpf (0 - 2); Urine Specific Gravity 1.017 (1.001-1.035); Urine WBC 10 /hpf (0 - 5)
[2020-09-12 09:52] LABS: Protein, Urine 82.2 mg/dL (0.0-11.9)
[2020-09-12] MEDS ORDERED: FURO40TA4 PO (14:37)
[2020-09-12] MEDS ORDERED: METO5TAB5 PO (14:37)
[2020-09-12 15:10] LABS: BUN/Creatinine Ratio 47.8; Calcium 8.6 mg/dL (8.5-10.1); Potassium 3.9 mmol/L (3.5-5.1)
[2020-09-12] MEDS ORDERED: LACTULOSE 20Gm/30ML SOLN PO PRN (15:45)
[2020-09-12] MEDS ORDERED: IPRATROPIUM BROM 0.5 MG/2.5ML INH SOL NEB PRN (22:15)
[2020-09-12] MEDS ORDERED: METOPROLOL SUCCINATE XL 50 MG TAB PO ONE (22:15)
[2020-09-12] MEDS ORDERED: ALBUTEROL SULF 2.5 MG/0.5ML(0.5%) NEB SOLN NEB PRN (22:30)
[2020-09-12] MEDS ORDERED: ALBUTEROL SULF 2.5 MG/0.5ML(0.5%) NEB SOLN ONE (22:34)
[2020-09-13] VITALS (7 sets, daily range): BP systolic 97–114; BP diastolic 58–78
[2020-09-13] MEDS: HYDROcodone-ACET 10/325MG TAB PO PRN ×2 (05:27→18:22)
[2020-09-13 05:39] LABS: BUN/Creatinine Ratio 47.1; Calcium 8.9 mg/dL (8.5-10.1)
[2020-09-13] MEDS: DOCUSATE SOD 100 MG CAP PO SCH ×2 (08:13→22:15)
[2020-09-13] MEDS: FUROSEMIDE 40 MG/4 ML VIAL IV SCH (08:55)
[2020-09-13] MEDS: ALPRAZolam 0.25 MG TAB PO PRN (11:56)
[2020-09-13] MEDS ORDERED: metOLazone 5 MG TAB PO ONE (15:15)
[2020-09-13] MEDS: METOPROLOL SUCCINATE XL 50 MG TAB PO SCH (22:16)
[2020-09-14] MEDS: HYDROcodone-ACET 10/325MG TAB PO PRN ×3 (00:20→19:37)
[2020-09-14 05:00] VITALS: BP 121/76
[2020-09-14] MEDS: ALPRAZolam 0.25 MG TAB PO PRN (05:13)
[2020-09-14] MEDS: DOCUSATE SOD 100 MG CAP PO SCH ×2 (08:52→20:32)
[2020-09-14] MEDS: FUROSEMIDE 40 MG/4 ML VIAL IV SCH (08:52)
[2020-09-14 09:05] VITALS: BP 129/73
[2020-09-14 12:48] VITALS: BP 100/71
[2020-09-14 16:44] VITALS: BP 118/89
[2020-09-14] MEDS: METOPROLOL SUCCINATE XL 50 MG TAB PO SCH (20:32)
[2020-09-14 20:57] VITALS: BP 107/75
[2020-09-15] MEDS: HYDROcodone-ACET 10/325MG TAB PO PRN ×3 (01:27→20:30)
[2020-09-15 05:00] VITALS: BP 121/78
[2020-09-15 08:59] VITALS: BP 115/81
[2020-09-15] MEDS: FUROSEMIDE 40 MG/4 ML VIAL IV SCH (10:27)
[2020-09-15] MEDS: DOCUSATE SOD 100 MG CAP PO SCH ×2 (10:27→21:51)
[2020-09-15 13:00] VITALS: BP 110/59
[2020-09-15 17:07] VITALS: BP 92/65
[2020-09-15] MEDS ORDERED: SODIUM CHLORIDE 0.9% 500 ML IV ONE (20:30)
[2020-09-15] MEDS: METOPROLOL SUCCINATE XL 50 MG TAB PO SCH (21:52)
[2020-09-15 22:00] VITALS: BP 112/76
[2020-09-15 23:59] VITALS: BP 112/76
[2020-09-16 05:00] VITALS: BP 110/66
[2020-09-16 09:00] VITALS: BP 102/64
[2020-09-16] MEDS: HYDROcodone-ACET 10/325MG TAB PO PRN (09:14)
[2020-09-16] MEDS: FUROSEMIDE 40 MG/4 ML VIAL IV SCH (09:45)
[2020-09-16] MEDS: DOCUSATE SOD 100 MG CAP PO SCH (09:46)
[2020-09-16 13:00] VITALS: BP 108/68
[2020-09-16 17:10] VITALS: BP 99/62
[2020-09-16 17:19] VITALS: BP 102/64
== END 2020-09-16 18:25 | disposition hospice, home (50) | DRG 291 ==
LOC: ER 15:28 → EDBD 15:28 → TELE 18:07 → TELE-EAST 23:17
PROVIDERS: ADMIT Internal Medicine Cardiovascular Disease; ATTEND Internal Medicine Cardiovascular Disease
DX: I13.0 Hypertensive heart and chronic kidney disease with heart failure and stage 1 through stage 4 chronic kidney disease, or unspecified chronic kidney disease (principal); I50.33 Acute on chronic diastolic (congestive) heart failure; N17.0 Acute kidney failure with tubular necrosis; I82.409 Acute embolism and thrombosis of unspecified deep veins of unspecified lower extremity; D68.59 Other primary thrombophilia; Z20.822 Contact with and (suspected) exposure to COVID-19; S91.002A Unspecified open wound, left ankle, initial encounter; M19.90 Unspecified osteoarthritis, unspecified site; N18.32 Chronic kidney disease, stage 3b; D64.9 Anemia, unspecified; J44.9 Chronic obstructive pulmonary disease, unspecified; I25.10 Atherosclerotic heart disease of native coronary artery without angina pectoris; I48.91 Unspecified atrial fibrillation; I07.1 Rheumatic tricuspid insufficiency; W18.39XA Other fall on same level, initial encounter; I27.29 Other secondary pulmonary hypertension; Z90.49 Acquired absence of other specified parts of digestive tract; Z90.710 Acquired absence of both cervix and uterus; Z98.61 Coronary angioplasty status; Z79.899 Other long term (current) drug therapy; I25.2 Old myocardial infarction; Z86.73 Personal history of transient ischemic attack (TIA), and cerebral infarction without residual deficits; Y93.89 Activity, other specified; Y92.89 Other specified places as the place of occurrence of the external cause; Y99.8 Other external cause status
CPT/HCPCS: 36415; 51702; 73700; 80048; 80053; 81001; 82570; 83880; 84156; 84300; 84484; 85025; 85610; 85730; 87426; 93005; 94640; 96365; 97110; 97116; 97530; G0378

== ENCOUNTER → 2020-09-09 | Outpatient (CLI) | payer MEDICARE, OTHER ==
[~2020-09-09] MED LIST changes: +CYANOCOBALAMIN (B-12) 1000 MCG/1 ML VIAL IM ONE; +CYANOCOBALAMIN (B-12) 1000 MCG/1 ML VIAL ONE; +FURO40TA4 PO; +MAGN400T40 OR; +METO5TAB5 PO; +MULTIPLE VIT 10 ML IV ONE; +MVI in SODIUM CHLORIDE 0.9% 500 ML IVB ONE; +POTA-180 PO; -cefTRIAXone 1GM/50ML D5W 50 ML IV ONE
[2020-09-09 10:40] LABS: Basophils # (auto) 0 10 ^3/uL (0-0.2); Basophils % (auto) 0.3 % (0.0-2.0); Hemoglobin 12.3 g/dL (12.2-16.2); Lymphocytes # (auto) 0.5 10 ^3/uL (0.4-5.4); Neutrophils # (auto) 6.2 10 ^3/uL (1.6-8.6); Red Blood Cells 3.33 10^6/uL (4.0-5.20); White Blood Cell 7.7 10^3/uL (4.4-10.8)
[2020-09-09 10:41] LABS: Eosinophils # (auto) 0.2 10 ^3/uL (0-0.8); Eosinophils % (auto) 2.4 % (0.0-7.0); Hematocrit 35.8 % (36.0-46.0); Lymphocytes % (auto) 6.6 % (10.0-50.0); Mean Corpuscular Hemoglobin 36.9 pg (28.0-32.0); Mean Corpuscular Hgb Conc. 34.3 g/dL (32.0-36.0); Mean Corpuscular Volume 107.4 fL (80.0-100.0); Monocytes # (auto) 0.7 10 ^3/uL (0-1.3); Monocytes % (auto) 9.5 % (0.0-12.0); Neutrophils % (auto) 81.2 % (37.0-80.0); Platelet Count (auto) 203 10^3/uL (140-450); Red Cell Distribution Width 16.1 % (11.8-14.3)
[2020-09-09 10:42] LABS: Urine Blood Negative /uL (Negative); Urine Specific Gravity 1.013 (1.001-1.035)
[2020-09-09 10:58] LABS: Potassium 3.7 mmol/L (3.5-5.1)
[2020-09-09 11:04] LABS: Albumin 3.1 g/dL (3.4-5.0); BUN/Creatinine Ratio 54.4; Bilirubin, Total 1.6 mg/dL (0.2-1.0); Magnesium 2.6 mg/dL (1.6-2.6); Total Protein 7.7 g/dL (6.4-8.2)
[2020-09-09 13:00] VITALS: BP 106/69
[2020-09-09 14:35] VITALS: BP 117/81
== END | disposition home or self-care (01) ==
LOC: CHF HDHVI 09:47
PROVIDERS: ATTEND Internal Medicine Cardiovascular Disease
DX: I11.0 Hypertensive heart disease with heart failure (principal); I50.23 Acute on chronic systolic (congestive) heart failure; I70.0 Atherosclerosis of aorta; R91.8 Other nonspecific abnormal finding of lung field; Z79.899 Other long term (current) drug therapy
CPT/HCPCS: 36415; 71046; 80053; 81003; 83735; 83880; 85025; 96365; 96366; 96372; G0463; J3411; J3420; J3475; J7040